=== PATIENT | female | born 1955 | race Caucasian/White ===

== ENCOUNTER → 2016-10-14 | Outpatient (REF) | payer MEDICARE, OTHER ==
[~2016-10-14] MED LIST: /WARF25TA OR; /WARF5TA OR; ACET65TA OR; ALLE180T33 PO; AMBI10TA PO; AMBIEN PO; AMOX500C PO; ASPI81TA83 OR; BIOT50004 PO; CELE-19 PO; FLOVENT INH; IRON28TA PO; KEFL500C OR; LISIPOW PO; MAXALT PO; MULTLIQ7 PO; NEUR300C PO; PERC5TAB8 OR; ROPI25TA PO; SPIR25TA2 PO; TRAMADOL PO; VICO5TAB OR; VITAMIN D PO; ZYRTEC PO
[2016-10-14 14:37] LABS: ALBUMIN 3.4 GM/DL (3.2-5.2); ALBUMIN/GLOBULIN RATIO 1.13 (1.00-1.93); BILIRUBIN,TOTAL 0.5 MG/DL (0.2-1.0); CALCIUM LEVEL 8.5 MG/DL (8.8-10.2); GLOMERULAR FILTRATION RATE 59.6 (>45); POTASSIUM SERUM 4.5 MEQ/L (3.5-5.1); TOTAL PROTEIN 6.4 GM/DL (6.4-8.2)
== END ==
LOC: M LABDRAW1 11:37
PROVIDERS: ATTEND Emergency Medicine
DX: E55.9 Vitamin D deficiency, unspecified (principal); I10 Essential (primary) hypertension

== ENCOUNTER → 2016-12-30 | Outpatient (CLI) | payer MEDICARE, BC, OTHER ==
--- NOTE | 2016-12-30 14:38 | REPMRS ---
Patient History The patient states she has not had a clinical breast exam in over a year. Family history of breast cancer in mother at age 50 or over and breast cancer in maternal aunt at age 50 or over. Benign stereotatic breast biopsy of the right breast, 2005. Digital Woman Screen Mammo: December 30, 2016 - Exam #: [id number] Bilateral CC and MLO view(s) were taken. Technologist: Freda Michelle Technologist Prior study comparison: December 17, 2015, digital woman screen mammo performed at [facility]. November 15, 2014, digital woman screen mammo performed at [facility]. FINDINGS: There are scattered fibroglandular densities. There has been no change in the appearance of the mammogram from the prior studies. There is a mild amount of residual fibroglandular tissue which is fairly symmetric. There is no interval development of dominant mass, architectural distortion, or clustered microcalcification suggestive of malignancy. ASSESSMENT: BI-RADS/ACR category 1 mammogram. Negative. Recommendation Routine screening mammogram in 1 year (for women over age 40). This mammogram was interpreted with the aid of an FDA-approved computer-aided dectection system. Electronically Signed By: Kevyn uCnningham MD 12/30/16 [id number]
== END ==
LOC: M WHC 13:00
PROVIDERS: ATTEND Emergency Medicine
DX: Z12.31 Encounter for screening mammogram for malignant neoplasm of breast (principal)

== ENCOUNTER → 2017-03-02 | Outpatient (CLI) | payer MEDICARE, BC, OTHER ==
[~2017-03-02] VITALS: Ht 160 cm; Wt 99.8 kg
[~2017-03-02] MED LIST changes: -CELE-19 PO; +CELE1CAP4 PO; +CELE1CAP9 PO; +FISH1000 PO; +LEXA1TAB PO; +LIDOCAINE 2% INJ 100 MG/5 ML SDV (FOR ANES.) As Ordered ONE; +NS 1,000 ML IV ONE; +PROPOFOL 200 MG/20 ML VIAL As Ordered ONE; +RIZA10TA2 PO; +TIZA4CAP3 PO; +TRAZ50TA11 PO; +VITA200016 PO; +ZYRT10TA2 PO; +[UNRECOGNIZED DRUG - OTHER] PO; +vicodin PO
--- NOTE | 2017-03-02 09:03 | ROOR ---
Patient Name: Nikki Wyman Procedure Date: 03/02/2017 8:45 AM Date of : 1955 Age: 61 Room: [facility] Gender: Female Note Status: Finalized Procedure: Total Colonoscopy to Cecum Indications: Screening for colorectal malignant neoplasm Providers: Elliott Deshpande MD Referring MD: AMALIA MARROQUIN MD Requesting Provider: Medicines: Monitored Anesthesia Care Complications: No immediate complications. Procedure: Pre-Anesthesia Assessment: - The heart rate, respiratory rate, oxygen saturations, blood pressure, adequacy of pulmonary ventilation, and response to care were monitored throughout the procedure. The Colonoscope was introduced through the anus and advanced to the cecum, identified by appendiceal orifice and ileocecal valve. The colonoscopy was performed without difficulty. The patient tolerated the procedure well. The quality of the bowel preparation was good. Findings: The perianal and digital rectal examinations were normal. Non-bleeding internal hemorrhoids were found during retroflexion. The hemorrhoids were small and Grade I (internal hemorrhoids that do not prolapse). Scattered small-mouthed diverticula were found in the recto-sigmoid colon, sigmoid colon and descending colon. The exam was otherwise without abnormality on direct and retroflexion views. Impression: - Non-bleeding internal hemorrhoids. - Diverticulosis in the recto-sigmoid colon, in the sigmoid colon and in the descending colon. - The examination was otherwise normal on direct and retroflexion views. - No specimens collected. - The exam was otherwise normal to the cecum. Recommendation: - Patient has a contact number available for emergencies. The signs and symptoms of potential delayed complications were discussed with the patient. Return to normal activities tomorrow. Written discharge instructions were provided to the patient. - High fiber diet. - Discharge patient to home. - Continue present medications. - Repeat colonoscopy in 10 years for screening purposes. - Return to referring physician. - The findings and recommendations were discussed with the patient's family. Elliott Deshpande MD Elliott Deshpande MD 03/02/2017 9:03:04 AM This report has been signed electronically. Number of Addenda: 0 Note Initiated On: 03/02/2017 8:45 AM Estimated Blood Loss: Estimated blood loss: none.
[2017-03-02 09:30] VITALS: BP 161/92
== END | disposition home or self-care (01) ==
LOC: M OPP 08:03
PROVIDERS: ATTEND Internal Medicine Gastroenterology
DX: Z12.11 Encounter for screening for malignant neoplasm of colon (principal); K64.0 First degree hemorrhoids; K57.30 Diverticulosis of large intestine without perforation or abscess without bleeding; E04.1 Nontoxic single thyroid nodule; R60.0 Localized edema; M19.90 Unspecified osteoarthritis, unspecified site; G43.909 Migraine, unspecified, not intractable, without status migrainosus; J45.909 Unspecified asthma, uncomplicated; Z98.84 Bariatric surgery status; Z98.1 Arthrodesis status; Z91.040 Latex allergy status; Z79.899 Other long term (current) drug therapy; Z80.3 Family history of malignant neoplasm of breast

== ENCOUNTER → 2017-04-30 | Outpatient (REF) | payer MEDICARE, OTHER ==
[~2017-04-30] MED LIST changes: -LIDOCAINE 2% INJ 100 MG/5 ML SDV (FOR ANES.) As Ordered ONE; -NS 1,000 ML IV ONE; -PROPOFOL 200 MG/20 ML VIAL As Ordered ONE
[2017-04-30 11:25] LABS: ALBUMIN 3.9 GM/DL (3.2-5.2); ALBUMIN/GLOBULIN RATIO 1.44 (1.00-1.93); ALKALINE PHOSPHATASE 92 U/L (45-117); ALT/SGPT 23 U/L (12-78); ANION GAP 6 MEQ/L (8-16); AST/SGOT 19 U/L (15-37); BILIRUBIN,TOTAL 0.5 MG/DL (0.2-1.0); BLOOD UREA NITROGEN 15 MG/DL (7-18); CALCIUM LEVEL 8.5 MG/DL (8.8-10.2); CARBON DIOXIDE LEVEL 31 MEQ/L (21-32); CHLORIDE LEVEL 106 MEQ/L (98-107); CHOLESTEROL LEVEL 199 MG/DL (<200); CREATININE FOR GFR 0.87 MG/DL (0.55-1.02); GLOMERULAR FILTRATION RATE > 60.0 (>45); GLUCOSE, FASTING 92 MG/DL (80-110); POTASSIUM SERUM 4.6 MEQ/L (3.5-5.1); SODIUM LEVEL 143 MEQ/L (136-145); TOTAL PROTEIN 6.6 GM/DL (6.4-8.2); TRIGLYCERIDES LEVEL 66 MG/DL (<150)
== END ==
LOC: M LABDRAW1 10:28
PROVIDERS: ATTEND Emergency Medicine
DX: E55.9 Vitamin D deficiency, unspecified (principal); I10 Essential (primary) hypertension

== ENCOUNTER 2017-05-12 15:45 | Emergency (ER) | payer MEDICARE, BC, OTHER ==
[~2017-05-12] VITALS: Ht 160 cm; Wt 95.0 kg
--- NOTE | 2017-05-12 16:38 | REP ---
CT Head without contrast HISTORY: Trauma COMPARISON: 04/26/2012 There is no intraparenchymal hemorrhage, acute infarct, mass or midline shift. The ventricular system is normal in appearance. There is no extra cerebral collection. There is no fracture. The visualized sinuses are clear. IMPRESSION: There is no intracranial lesion. Signed by Jamel Dubon MD 05/12/2017 04:30 P
--- NOTE | 2017-05-12 17:08 | REP ---
CT CERVICAL SPINE WITHOUT CONTRAST: HISTORY: Trauma. COMPARISON: 04/26/2012 The patient is status post C5-6 anterior spinal fusion. A fixation plate and bone graft material are present. There is no acute fracture or subluxation. Disc bulges are present at the C3-4 and C4-5 levels. Posterior osteophytes are present at the C5-6 level. A disc bulge with associated osteophyte formation is present at the C6-7 level. There is minimal narrowing of the spinal canal. Uncinate process and/or facet hypertrophy are present at te C5-6 through C7-T1 levels. These findings produce minimal to moderate narrowing of the neural foramina. The C4-5 and C6-7 intervertebral discs are decreased in height consistent with disc degeneration. Hypodensities measuring 0.9 to 1.5 cm in width are present in the thyroid gland. These most likely represent cysts. A 4 mm calcification is present in the left thyroid lobe. IMPRESSION: 1. The patient is status post C5-6 anterior spinal fusion. There is anatomic alignment of the cervical spine. 2. There is cervical spondylosis at the C3-4 through C7-T1 levels. 3. There are several hypodensities ranging in size from 0.9 to 1.5 cm in the thyroid gland. These most likely represent cysts. Ultrasound may be helpful for further evaluation. Signed by Jamel Dubon MD 05/12/2017 05:08 P
--- NOTE | 2017-05-12 17:45 | REP ---
LEFT HAND, FOUR VIEWS: HISTORY: Trauma. There is no acute fracture or dislocation. There is narrowing of the first carpometacarpal joint space with associated osteophyte formation. There is narrowing of the first through fifth metacarpophalangeal, intermediate and distal interphalangeal joint spaces. IMPRESSION: Degenerative change as described above. Signed by Jamel Dubon MD 05/12/2017 05:47 P
--- NOTE | 2017-05-12 17:45 | REP ---
LEFT ELBOW, FOUR VIEWS: HISTORY: Trauma. There is no acute fracture or dislocation. The joint space is normal in appearance. IMPRESSION: There is no acute fracture or dislocation. Signed by Jamel Dubon MD 05/12/2017 05:47 P
[2017-05-12] MEDS ORDERED: KETOROLAC 30 MG/ML VIAL (J1885) IV ONE (18:15)
[2017-05-12 18:21] VITALS: BP 168/81
--- NOTE | 2017-05-13 06:42 | ED PDOC ---
Post-Departure Follow-Up dr santos faxed formal report of ct c spine for fu Wilfredo Batista MD May 13, 2017 06:42
== END 2017-05-12 18:34 | disposition home or self-care (01) ==
LOC: M ED 15:45 → EDSEX 15:45 → EDBD 15:45 → M ED 18:34
DX: S00.03XA Contusion of scalp, initial encounter (principal); S60.012A Contusion of left thumb without damage to nail, initial encounter; S50.02XA Contusion of left elbow, initial encounter; S00.81XA Abrasion of other part of head, initial encounter; V86.99XA Unspecified occupant of other special all-terrain or other off-road motor vehicle injured in nontraffic accident, initial encounter; Y92.099 Unspecified place in other non-institutional residence as the place of occurrence of the external cause; Y93.9 Activity, unspecified; Y99.9 Unspecified external cause status; G43.909 Migraine, unspecified, not intractable, without status migrainosus; Z98.84 Bariatric surgery status; Z98.1 Arthrodesis status; M47.812 Spondylosis without myelopathy or radiculopathy, cervical region; E07.9 Disorder of thyroid, unspecified; Z79.899 Other long term (current) drug therapy; Z91.040 Latex allergy status
CPT/HCPCS: 70450; 72125; 73080; 73130; 96374; 99284; J1885

== ENCOUNTER → 2017-09-25 | Outpatient (REF) | payer MEDICARE, OTHER ==
[2017-09-25 20:43] LABS: BASO % 0.5 % (0.0-1.0); EOS # 0.3 10^3/uL (0.0-0.50); EOS % 3.6 % (0.0-3.0); HEMATOCRIT 40.4 % (36.0-47.0); HEMOGLOBIN 12.6 g/dl (12.0-16.0); IMMATURE GRANULOCYTE % 0.3 % (0-3.0); LYMPH # 2.1 10^3/uL (1.5-4.5); LYMPH % 27.1 % (24.0-44.0); MEAN CORPUSCULAR HEMOGLOBIN 28.8 pg (27.0-33.0); MEAN CORPUSCULAR HGB CONC 31.2 g/dl (32.0-36.5); MEAN CORPUSCULAR VOLUME 92.2 fl (80.0-96.0); MONO # 0.6 10^3/uL (0.0-0.8); MONO % 7.2 % (0.0-5.0); NEUTROPHILS # 4.8 10^3/uL (1.8-7.7); NEUTROPHILS % 61.3 % (36.0-66.0); PLATELET COUNT, AUTOMATED 206 10^3/uL (150-450); RED BLOOD COUNT 4.38 10^6/uL (4.00-5.40); RED CELL DISTRIBUTION WIDTH 13.2 % (11.5-14.5); WHITE BLOOD COUNT 7.8 10^3/uL (4.0-10.0)
[2017-09-25 20:59] LABS: ALBUMIN 4.1 GM/DL (3.2-5.2); ALBUMIN/GLOBULIN RATIO 1.28 (1.00-1.93); ALKALINE PHOSPHATASE 118 U/L (45-117); ALT/SGPT 40 U/L (12-78); ANION GAP 5 MEQ/L (8-16); AST/SGOT 42 U/L (7-37); BILIRUBIN,TOTAL 0.5 MG/DL (0.2-1.0); BLOOD UREA NITROGEN 16 MG/DL (7-18); CALCIUM LEVEL 8.6 MG/DL (8.8-10.2); CARBON DIOXIDE LEVEL 31 MEQ/L (21-32); CHLORIDE LEVEL 107 MEQ/L (98-107); GLOMERULAR FILTRATION RATE > 60.0 (>45); GLUCOSE, FASTING 87 MG/DL (70-100); POTASSIUM SERUM 4.8 MEQ/L (3.5-5.1); SODIUM LEVEL 143 MEQ/L (136-145); TOTAL PROTEIN 7.3 GM/DL (6.4-8.2); URIC ACID 4.3 MG/DL (2.6-6.0)
== END ==
LOC: M SFHCLERA 18:31
DX: M79.674 Pain in right toe(s) (principal)
CPT/HCPCS: 84550

== ENCOUNTER → 2017-12-31 | Outpatient (CLI) | payer MEDICARE, BC | LOC: M WHC 09:32 | DX: Z12.31 Encounter for screening mammogram for malignant neoplasm of breast (principal) | CPT/HCPCS: 77067 ==

== ENCOUNTER → 2018-03-29 | Outpatient (REF) | payer MEDICARE, OTHER ==
[2018-03-29 13:04] LABS: ALBUMIN 3.6 GM/DL (3.2-5.2); ALKALINE PHOSPHATASE 87 U/L (45-117); ALT/SGPT 17 U/L (12-78); ANION GAP 8 MEQ/L (8-16); AST/SGOT 15 U/L (7-37); BILIRUBIN,TOTAL 0.5 MG/DL (0.2-1.0); BLOOD UREA NITROGEN 19 MG/DL (7-18); CALCIUM LEVEL 8.3 MG/DL (8.8-10.2); CARBON DIOXIDE LEVEL 27 MEQ/L (21-32); CHLORIDE LEVEL 109 MEQ/L (98-107); CHOLESTEROL LEVEL 182 MG/DL (<200); GLOMERULAR FILTRATION RATE > 60.0 (>45); GLUCOSE, FASTING 97 MG/DL (70-100); HDL CHOLESTEROL 56 MG/DL (>40); LDL CHOLESTEROL 106.6 MG/DL (<100); NON-HDL-C 126 MG/DL; POTASSIUM SERUM 4.2 MEQ/L (3.5-5.1); SODIUM LEVEL 144 MEQ/L (136-145); TOTAL PROTEIN 6.6 GM/DL (6.4-8.2); TRIGLYCERIDES LEVEL 97 MG/DL (<150)
[2018-03-29 13:32] LABS: TOTAL 25(OH) VITAMIN D 42.1 NG/ML (30.0-100.0)
== END ==
LOC: M LABDRAW1 11:52
DX: E55.9 Vitamin D deficiency, unspecified (principal); I10 Essential (primary) hypertension
CPT/HCPCS: 80053

== ENCOUNTER 2018-04-11 14:15 | Emergency (ER) | payer MEDICARE, BC, OTHER | END 2018-04-11 16:52 | disposition home or self-care (01) | LOC: M ED 14:15 | DX: M79.651 Pain in right thigh (principal); W01.0XXA Fall on same level from slipping, tripping and stumbling without subsequent striking against object, initial encounter; Y92.098 Other place in other non-institutional residence as the place of occurrence of the external cause; Z96.641 Presence of right artificial hip joint; Z98.84 Bariatric surgery status; Z91.040 Latex allergy status; Z79.899 Other long term (current) drug therapy | CPT/HCPCS: 72190 ==

== ENCOUNTER → 2018-04-16 | Outpatient (CLI) | payer MEDICARE, BC, OTHER | LOC: M RAD 08:12 | DX: S70.01XA Contusion of right hip, initial encounter (principal) | CPT/HCPCS: 78315 ==

== ENCOUNTER 2018-09-14 15:29 | Emergency (ER) | payer BC, MEDICARE, OTHER ==
[~2018-09-14 15:29] MED LIST changes: +SPIR-10 PO; -SPIR25TA2 PO; +TIZA4CAP PO; -TIZA4CAP3 PO; +TRAZ-160 PO; -TRAZ50TA11 PO; +ZYRT10CA5 PO; -ZYRT10TA2 PO
[2018-09-14] MEDS ORDERED: NORCOTAB PO (16:57)
[2018-09-14] MEDS ORDERED: ROLLMIS2 XX ×2 (16:57→17:00)
[2018-09-14 17:10] VITALS: BP 175/89
--- NOTE | 2018-09-14 19:14 | REP ---
Right ankle four views: There is a nondisplaced spiral fracture of the distal fibula. The mortise is symmetric. There is no dislocation. Mineralization is normal. There is a calcaneal plantar spur. Electronically Signed by Keyvn Camargo MD 09/14/2018 07:04 P
== END 2018-09-14 17:15 | disposition home or self-care (01) ==
LOC: EDBD 15:29 → M ED 15:29
DX: S82.441A Displaced spiral fracture of shaft of right fibula, initial encounter for closed fracture (principal); W00.0XXA Fall on same level due to ice and snow, initial encounter; Y92.019 Unspecified place in single-family (private) house as the place of occurrence of the external cause

== ENCOUNTER → 2019-01-11 | Outpatient (CLI) | payer MEDICARE, BC ==
[~2019-01-11] MED LIST changes: -/WARF25TA OR; -/WARF5TA OR; +COUM1TAB17 OR; +COUM1TAB18 OR; +HYDR-3715 PO; +ROLLMIS2 XX; -TRAZ-160 PO; +TRAZ-252 PO
--- NOTE | 2019-01-11 08:57 | REPMRS ---
Patient History The patient states she has not had a clinical breast exam in over a year. Family history of breast cancer at age 50 or over in mother, breast cancer at age 50 or over in maternal aunt. Benign stereotatic breast biopsy of the right breast, 2006. Digital Woman Screen Mammo: January 11, 2019 - Exam #: [id number] Bilateral CC and MLO view(s) were taken. Technologist: Karen Bryant, Technologist Prior study comparison: December 31, 2017, digital woman screen mammo performed at [facility]. December 30, 2016, digital woman screen mammo performed at [facility]. December 17, 2015, digital woman screen mammo performed at [facility]. FINDINGS: There are scattered fibroglandular densities. There has been no change in the appearance of the mammogram from the prior studies. There is a mild amount of scattered fibroglandular density which is fairly symmetric. There is no interval development of dominant mass, architectural distortion, or clustered microcalcification suggestive of malignancy. 3-D tomosynthesis shows no additional findings. Assessment: BI-RADS/ACR category 1 mammogram. Negative Mammogram. Recommendation Routine screening mammogram of both breasts in 1 year (for women over age 40). This patient's Lifetime Breast Cancer RIsk is estimated at 12.1 %. This mammogram was interpreted with the aid of an FDA-approved computer-aided dectection system. Electronically Signed By: Myron Cano MD 01/11/19 [id number]
== END ==
LOC: M WHC 06:39
PROVIDERS: ATTEND Family Medicine
DX: Z12.31 Encounter for screening mammogram for malignant neoplasm of breast (principal); Z80.3 Family history of malignant neoplasm of breast

== ENCOUNTER 2019-09-24 14:52 | Observation (INO) | payer MEDICARE, BC, OTHER ==
[~2019-09-24] VITALS: Ht 165.1 cm; Wt 101.0 kg
[2019-09-24 15:31] LABS: BASO % 0.3 % (0.0-1.0); EOS # 0.2 10^3/uL (0.0-0.5); EOS % 2.8 % (0.0-3.0); HEMATOCRIT 42.1 % (36.0-47.0); HEMOGLOBIN 13.2 g/dl (12.0-15.5); LYMPH # 1.4 10^3/uL (1.5-5.0); LYMPH % 21.4 % (24.0-44.0); MEAN CORPUSCULAR HEMOGLOBIN 28.8 pg (27.0-33.0); MEAN CORPUSCULAR HGB CONC 31.4 g/dl (32.0-36.5); MEAN CORPUSCULAR VOLUME 91.9 fl (80.0-96.0); MONO # 0.4 10^3/uL (0.0-0.8); MONO % 5.8 % (0.0-5.0); NEUTROPHILS # 4.4 10^3/uL (1.5-8.5); NEUTROPHILS % 69.5 % (36.0-66.0); PLATELET COUNT, AUTOMATED 196 10^3/uL (150-450); RED BLOOD COUNT 4.58 10^6/uL (4.00-5.40); WHITE BLOOD COUNT 6.4 10^3/uL (4.0-10.0)
[2019-09-24 15:41] LABS: INR 1.05; PROTHROMBIN TIME 13.4 SECONDS (11.8-14.0)
--- NOTE | 2019-09-24 15:41 | REP ---
The CT of the brain without IV contrast: Comparison is 05/12/2017. There is no acute hemorrhage. There is no edema, mass effect or midline shift. The ventricles and sulci are mildly dilated compatible with diffuse volume loss. The cortical stripe is unremarkable. The visualized paranasal sinuses and mastoid air cells are clear. Impression: There is no acute hemorrhage. There is no mass effect or shift. There is mild diffuse volume loss. Electronically Signed by Kevyn Camargo MD 09/24/2019 03:33 P
[2019-09-24 15:42] LABS: PARTIAL THROMBOPLASTIN TIME 26.9 SECONDS (25.0-38.4)
[2019-09-24 15:54] LABS: CK-MB VALUE MASS < 1.0 NG/ML (<3.6); CPK CREATINE PHOSPHOKINASE 43 U/L (26-192); MB/CK RELATIVE INDEX 2.33 (< OR =4); TROPONIN I < 0.02 NG/ML (< 0.10)
[2019-09-24 16:13] LABS: ALBUMIN 3.8 GM/DL (3.2-5.2); ALT/SGPT 34 U/L (12-78); BILIRUBIN,DIRECT < 0.1 MG/DL (0.0-0.2); BILIRUBIN,TOTAL 0.3 MG/DL (0.2-1.0); BLOOD UREA NITROGEN 15 MG/DL (7-18); CALCIUM LEVEL 8.2 MG/DL (8.8-10.2); CARBON DIOXIDE LEVEL 30 MEQ/L (21-32); CHLORIDE LEVEL 108 MEQ/L (98-107); CREATININE FOR GFR 0.94 MG/DL (0.55-1.30); GLOMERULAR FILTRATION RATE > 60.0 (>45); GLUCOSE, FASTING 190 MG/DL (70-100); POTASSIUM SERUM 3.7 MEQ/L (3.5-5.1); SODIUM LEVEL 140 MEQ/L (136-145); TOTAL PROTEIN 6.7 GM/DL (6.4-8.2)
--- NOTE | 2019-09-24 16:32 | REP ---
Portable chest, 04:04 p.m., single AP view with the patient upright: Comparison is 09/20/2015. There is minor atelectasis in the left costophrenic angle. Lung humphrey otherwise clear. The cardiac size is normal. The francisco javier, mediastinum, skeletal structures are unremarkable except for a cervical spine stabilization plate, unchanged. Impression: Minor atelectasis in the left costophrenic angle. Otherwise, negative portable chest. Electronically Signed by Kevyn Camargo MD 09/24/2019 04:24 P
[2019-09-24] MEDS ORDERED: BIOT5TAB3 PO (16:38)
[2019-09-24] MEDS ORDERED: ESCI20TA PO (16:38)
[2019-09-24] MEDS ORDERED: NORC1TAB7 PO (16:38)
[2019-09-24] MEDS ORDERED: POLYOPD OU (16:38)
[2019-09-24] MEDS ORDERED: ALL10TAB29 PO (16:38)
[2019-09-24] MEDS ORDERED: OYST1TAB PO (16:38)
[2019-09-24] MEDS ORDERED: FISH1000 PO (16:38)
[2019-09-24] MEDS ORDERED: D3 S1CAP3 PO (16:38)
[2019-09-24] MEDS ORDERED: GABA-843 PO ×2 (16:39)
--- NOTE | 2019-09-24 17:00 | HPEPDOC ---
General Date of Admission 09/24/19 Date of Service: Sep 24, 2019 Chief Complaint The patient is a 64-year-old female admitted with a reason for visit of S/S Of Stroke. History of Present Illness 64 year old female presents with L arm shaking and tongue numbness. Symptoms started at 2:30PM with numbness to her tongue, followed by L arm shaking and blurry vision. States symptoms lasted only about 2 minutes and then resolved. Has had a persistent frontal headache since then. Presents with BP194/117, labwork/CT head negative. Symptoms have not recurred, currently only with mild headache. Neurology Dr. Hess consulted in ED, admission for MRI, ECHO/carotids, EEG. Home Medications Scheduled Biotin (Biotin) 5 Mg Tablet, 5 MG PO DAILY, (Reported) Calcium Carbonate (Calcium) 500 Mg Tablet, 500 MG PO DAILY, (Reported) Celecoxib (Celecoxib) 200 Mg Cap, 200 MG PO BID, (Reported) Cetirizine HCl (Cetirizine HCl) 10 Mg Tablet, 10 MG PO DAILY, (Reported) Cholecalciferol (Vitamin D3) (Vitamin D3) 50 Mcg Capsule, 50 MCG PO DAILY, (Reported) Escitalopram Oxalate (Escitalopram Oxalate) 20 Mg Tablet, 20 MG PO DAILY, (Reported) Gabapentin (Gabapentin) 300 Mg Capsule, 300 MG PO QAM, (Reported) Gabapentin (Gabapentin) 300 Mg Capsule, 600 MG PO QHS, (Reported) [place]-3 Fatty Acids/Fish Oil (Fish Oil 1,000 mg Capsule) 1 Each Capsule, 1,000 MG PO DAILY, (Reported) Tizanidine HCl (Tizanidine HCl) 4 Mg Cap, 8 MG PO QHS, (Reported) Topiramate (Topamax) 50 Mg Tablet, 50 MG PO QHS Trazodone HCl (Trazodone HCl) 50 Mg Tab, 50 MG PO QHS, (Reported) Scheduled PRN Hydrocodone/Acetaminophen ([place] 5-325 Tablet) 1 Each Tablet, 1 TAB PO Q6H PRN for MIGRAINE, (Reported) Polyvinyl Alcohol (Artificial Tears) 15 Ml Drops, 1 DROP OU QID PRN for DRY EYES, (Reported) Rizatriptan Benzoate (Rizatriptan) 10 Mg Tab, 10 MG PO PRN PRN for MIGRAINE, (Reported) Allergies Coded Allergies: No Known Allergies (Verified , 02/23/17) Past Medical History Medical History migraine headaches, low back pain Surgical History as above A-FIB/CHADSVASC A-FIB History Current/History of A-Fib/PAF?: No Review of Systems Constitutional: Denies: Chills, Fever, Night Sweats Eyes: Denies: Pain, Vision change ENT: Denies: Head Aches, Ear Pain, Dysphagia Skin: Denies: Rash, Lesions, Breakdown Pulmonary: Denies: Dyspnea, Cough Cardiovascular: Denies: Chest Pain, Palpitations, Orthopnea, Paroxysmal Noc. Dyspnea, Lt Headedness Gastrointestinal: Denies: Nausea, Vomiting, Abdominal Pain, Diarrhea Genitourinary: Denies: Dysuria, Frequency, Incontinence, Retention Hematologic: Denies: Bruising, Bleeding Excessively Musculoskeletal: Denies: Neck Pain, Back Pain, Joint Pain, Muscle Pain, Spasms Neurological: Reports: Other Symptoms (headache); Denies: Weakness, Numbness, Change in speech, Confusion Psych: Reports: Mood Normal; Denies: Depression, Memory Issues Physical Examination General Exam: Positive: Alert, No Acute Distress Eye Exam: Positive: PERRLA, Conjunctiva & lids normal, EOMI; Negative: Sclera icteric ENT Exam: Positive: Atraumatic, Mucous membr. moist/pink, Pharynx Normal Neck Exam: Positive: Supple; Negative: JVD, thyromegaly Chest Exam: Positive: Clear to auscultation, Normal air movement Heart Exam: Positive: Rate Normal, Regular Rhythm, Normal S1, Normal S2; Negative: Murmurs, Rubs Telemetry: Positive: No significant arrhythmia Abdomen Exam: Positive: Normal bowel sounds, Soft; Negative: Tenderness, Hepatospenomegaly Extremity Exam: Positive: Normal pulses; Negative: Clubbing, Cyanosis, Edema Skin Exam: Positive: Nl turgor and temperature; Negative: Breakdown, Lesion Neuro Exam: Positive: Normal Gait, Normal Speech, Cranial Nerves 3-12 NL, Reflexes 2+ Psych Exam: Positive: Mental status NL, Mood NL, Oriented x 3 Vital Signs Vital Signs Date Time Temp Pulse Resp B/P (MAP) Pulse Ox O2 Delivery O2 Flow Rate FiO2 09/24/19 16:19 74 18 173/81 (111) 98 Room Air 09/24/19 14:54 98.2 Laboratory Data Labs 24H Laboratory Tests 2 09/24/19 15:20: Immature Granulocyte % (Auto) 0.2, Neutrophils (%) (Auto) 69.5H, Lymphocytes (%) (Auto) 21.4L, Monocytes (%) (Auto) 5.8H, Eosinophils (%) (Auto) 2.8, Basophils (%) (Auto) 0.3, Neutrophils # (Auto) 4.4, Lymphocytes # (Auto) 1.4L, Monocytes # (Auto) 0.4, Eosinophils # (Auto) 0.2, Basophils # (Auto) 0.0, Nucleated Red Blood Cells % (auto) 0.0, Prothrombin Time 13.4, Prothromb Time International Ratio 1.05, Activated Partial Thromboplast Time 26.9, Anion Gap 2L, Glomerular Filtration Rate > 60.0, Calcium Level 8.2L, Total Bilirubin 0.3, Direct Bilirubin < 0.1, Aspartate Amino Transf (AST/SGOT) 24, Alanine Aminotransferase (ALT/SGPT) 34, Alkaline Phosphatase 107, Total Creatine Kinase 43, Creatine Kinase MB < 1.0, Creatine Kinase MB Relative Index 2.33, Troponin I < 0.02, Total Protein 6.7, Albumin 3.8, Albumin/Globulin Ratio 1.31 09/24/19 15:21: Bedside Prothrombin Time INR 1.1, Prothrombin Time (MISC) 13.0 09/24/19 15:22: POC Glucose (Misc Panel) 194H, POC Sodium (Misc Panel) 142, POC Potassium (Misc Panel) 3.7, POC Chloride (Misc Panel) 104, POC Total CO2 (Misc Panel) 27.0, POC Blood Urea Nitrogen (Misc Panel 15, POC Ionized Calcium (Misc Panel) 4.7, POC Creatinine (Misc Panel) 0.9, POC Hematocrit (Misc Panel) 41.0 CBC/BMP Laboratory Tests 09/24/19 15:20 Assessment/Plan 1. L arm shaking/numbness to tongue/blurry vision - TIA versus complex migraine versus seizure. - neurology Dr. Hess consulted in ED. - admit for MRI brain, ECHO/carotids, EEG. - ASA, statin. 2. hx migraines - continue triptan. 3. lower back pain - continue muscle relaxant. 4. HTN (uncontrolled) - will treat with IV lopressor, start PO meds. - monitor. Plan / VTE VTE Prophylaxis Ordered?: Yes GERMAIN HENRIQUEZ MD Sep 24, 2019 17:00
[2019-09-24] MEDS ORDERED: METOPROLOL 5 MG/5 ML VIAL IV STA (17:05)
[2019-09-24] MEDS ORDERED: METOPROLOL SUCC (TopROL XL) 50MG **XL** TAB PO ONE (17:15)
[2019-09-24] MEDS ORDERED: NORCO, ANEXSIA 5/325MG TABLET (HYDROcodone/ACETAMINOPHEN) PO PRN (17:15)
[2019-09-24] MEDS ORDERED: POLYVINYL ALCOHOL OPHTH SOLN 15 ML(LIQUITEARS) OU PRN (17:15)
[2019-09-24] MEDS ORDERED: RIZATRIPTAN BENZOATE 10 MG TAB PO PRN (17:15)
[2019-09-24] MEDS ORDERED: METOPROLOL TART 25 MG TABLET PO ONE (17:30)
--- NOTE | 2019-09-24 18:44 | REPVR ---
PROCEDURE INFORMATION: Exam: MR Head Without Contrast Exam date and time: 09/24/2019 5:02 PM Age: 64 years old Clinical indication: Weakness, facial; Additional info: TIA TECHNIQUE: Imaging protocol: MR of the head without contrast. COMPARISON: CT Head without contrast 09/24/2019 3:16 PM FINDINGS: Brain: Normal. No acute infarct. No hemorrhage. No significant white matter disease. No edema. Ventricles: Normal. No ventriculomegaly. Bones/joints: Unremarkable. Soft tissues: Unremarkable. Sinuses: Inflammatory changes left maxillary sinus. Mastoid air cells: Normal as visualized. No mastoid effusion. Orbits: Unremarkable. IMPRESSION: No acute intracranial findings. Electronically signed by: Benjie Pascual On 09/24/2019 18:44:47 PM
[2019-09-24 18:52] LABS: CHOLESTEROL LEVEL 177 MG/DL (<200); CHOLESTEROL RISK RATIO 4.116 (<5); HDL CHOLESTEROL 43 MG/DL (>40); LDL CHOLESTEROL 104 MG/DL (<100); NON-HDL-C 134 MG/DL; TRIGLYCERIDES LEVEL 148 MG/DL (<150)
--- NOTE | 2019-09-24 18:52 | REPVR ---
PROCEDURE INFORMATION: Exam: US Duplex Bilateral Extracranial Arteries Exam date and time: 09/24/2019 6:43 PM Age: 64 years old Clinical indication: Visual disturbance; Additional info: TIA TECHNIQUE: Imaging protocol: Real-time Duplex ultrasound scan of the bilateral carotid and vertebral arteries combining wiley scale, color Doppler and spectral waveform analysis. Bilateral exam. COMPARISON: CT Head without contrast 09/24/2019 3:16 PM FINDINGS: Right common carotid artery: Unremarkable. No occlusion or stenosis. Waveforms are normal. Right internal carotid artery: Mild atherosclerotic changes. No occlusion or significant stenosis. Waveforms are normal. Right ICA/CCA ratio: Within normal limits. Peak systolic ratio 1.1. Right external carotid artery: No stenosis in the origin. Right vertebral artery: Unremarkable. Antegrade flow Left common carotid artery: Unremarkable. No occlusion or stenosis. Waveforms are normal. Left internal carotid artery: Mild atherosclerotic changes. No occlusion or significant stenosis. Waveforms are normal. Left ICA/CCA ratio: Within normal limits. Peak systolic ratio 0.76. Left external carotid artery: No stenosis in the origin. Left vertebral artery: Unremarkable. Antegrade flow. IMPRESSION: 1. Mild atherosclerotic changes in both proximal internal carotid arteries resulting in a less than 50 stenosis bilaterally consistent with mild stenosis using SRU criteria. 2. Antegrade flow both vertebral arteries. REFERENCES: Carotid Stenosis Reference using SRU criteria: Mild: less than 50% stenosis. ICA PSV is less than 125 cm/second and plaque or intimal thickening is visible. Moderate: 50-69% stenosis. ICA PSV is 125 to 230 cm/second and plaque is visible. Severe: 70-94% stenosis. ICA PSV is more than 230 cm/second and visible plaque and lumen narrowing are seen. Near occlusion: 95-99% stenosis. ICA PSV is variable and significant plaque and luminal narrowing are seen. Occluded: 100% stenosis. No flow identified. Electronically signed by: Benjie Pascual On 09/24/2019 18:51:42 PM
[2019-09-25 00:12] VITALS: BP 160/90
[2019-09-25] MEDS: tiZANidine 4 MG TAB PO SCH ×2 (00:45→20:32)
[2019-09-25] MEDS: traZODone 50 MG TAB PO SCH ×2 (00:45→20:32)
[2019-09-25] MEDS: GABAPENTIN 300 MG CAP PO SCH ×3 (00:45→20:32)
[2019-09-25] MEDS ORDERED: CelecoXIB (CeleBREX) 100 MG CAP PO PRN (01:30)
[2019-09-25 04:00] VITALS: BP 132/80
[2019-09-25 05:43] LABS: ALT/SGPT 31 U/L (12-78); BLOOD UREA NITROGEN 17 MG/DL (7-18); CALCIUM LEVEL 8.2 MG/DL (8.8-10.2); CARBON DIOXIDE LEVEL 31 MEQ/L (21-32); CHLORIDE LEVEL 111 MEQ/L (98-107); CREATININE FOR GFR 0.89 MG/DL (0.55-1.30); GLOMERULAR FILTRATION RATE > 60.0 (>45); GLUCOSE, FASTING 92 MG/DL (70-100); POTASSIUM SERUM 4.6 MEQ/L (3.5-5.1); SODIUM LEVEL 144 MEQ/L (136-145)
[2019-09-25 05:44] LABS: ALBUMIN 3.1 GM/DL (3.2-5.2); BILIRUBIN,TOTAL 0.3 MG/DL (0.2-1.0); TOTAL PROTEIN 6.3 GM/DL (6.4-8.2)
[2019-09-25 08:00] VITALS: BP 134/76
--- NOTE | 2019-09-25 08:25 | IPNPDOC ---
Subjective Date Seen The patient was seen on 09/25/19. Subjective Chief Complaint/HPI Seen and examined at bedside, no specific complaints, mild headache. General: Reports: Normal Appetite; Denies: Chills, Night Sweats, Fatigue, Malaise Constitutional: Denies: Chills, Fever, Night Sweats Eyes: Denies: Pain, Vision change ENT: Denies: Head Aches, Ear Pain, Dysphagia Skin: Denies: Rash, Lesions, Breakdown Pulmonary: Denies: Dyspnea, Cough Cardiovascular: Denies: Chest Pain, Palpitations, Orthopnea, Paroxysmal Noc. Dyspnea, Lt Headedness Gastrointestinal: Denies: Nausea, Vomiting, Abdominal Pain, Diarrhea, Constipation Genitourinary: Denies: Dysuria, Frequency, Incontinence, Retention Hematologic: Denies: Bruising, Bleeding Excessively Musculoskeletal: Denies: Neck Pain, Back Pain, Joint Pain, Muscle Pain, Spasms Neurological: Denies: Weakness, Numbness, Change in speech, Confusion Psych: Reports: Mood Normal; Denies: Depression, Memory Issues Objective Physical Examination General Exam: Positive: Alert, No Acute Distress Eye Exam: Positive: PERRLA, Conjunctiva & lids normal, EOMI; Negative: Sclera icteric ENT Exam: Positive: Atraumatic, Mucous membr. moist/pink, Pharynx Normal Neck Exam: Positive: Supple; Negative: JVD, thyromegaly Chest Exam: Positive: Clear to auscultation, Normal air movement Heart Exam: Positive: Rate Normal, Regular Rhythm, Normal S1, Normal S2; Negative: Murmurs, Rubs Telemetry: Positive: No significant arrhythmia Abdomen Exam: Positive: Normal bowel sounds, Soft; Negative: Tenderness, Hepatospenomegaly Female Exam: Positive: Nl Ext Genitalia; Negative: Lesions, Discharge, Odor, Tenderness Extremity Exam: Positive: Normal pulses; Negative: Clubbing, Cyanosis, Edema Skin Exam: Positive: Nl turgor and temperature; Negative: Breakdown, Lesion Neuro Exam: Positive: Normal Gait, Normal Speech, Cranial Nerves 3-12 NL, Reflexes 2+ Psych Exam: Positive: Mental status NL, Mood NL, Oriented x 3 Assessment /Plan Assessment 1. L arm shaking/numbness to tongue/blurry vision - TIA versus complex migraine versus seizure. - neurology Dr. Hess consulted in ED. - MRI brain negative, carotids with no significant stenosis. - ECHO/EEG pending. - ASA. 2. hx migraines - continue triptan. 3. lower back pain - continue muscle relaxant. 4. HTN (uncontrolled) - improved with PO meds. - monitor. Plan/VTE VTE Prophylaxis Ordered?: Yes VS, I&O, 24H, Fishbone Vital Signs/I&O Vital Signs Date Time Temp Pulse Resp B/P (MAP) Pulse Ox O2 Delivery O2 Flow Rate FiO2 09/25/19 08:00 97.0 67 18 134/76 (95) 97 Room Air I&O- Last 24 Hours up to 6 AM 09/25/19 06:00 Intake Total 0 ml Output Total 150 ml Balance -150 ml Laboratory Data 24H LABS Laboratory Tests 2 09/24/19 15:20: Immature Granulocyte % (Auto) 0.2, Neutrophils (%) (Auto) 69.5H, Lymphocytes (%) (Auto) 21.4L, Monocytes (%) (Auto) 5.8H, Eosinophils (%) (Auto) 2.8, Basophils (%) (Auto) 0.3, Neutrophils # (Auto) 4.4, Lymphocytes # (Auto) 1.4L, Monocytes # (Auto) 0.4, Eosinophils # (Auto) 0.2, Basophils # (Auto) 0.0, Nucleated Red Blood Cells % (auto) 0.0, Prothrombin Time 13.4, Prothromb Time International Ratio 1.05, Activated Partial Thromboplast Time 26.9, Anion Gap 2L, Glomerular Filtration Rate > 60.0, Calcium Level 8.2L, Total Bilirubin 0.3, Direct Bilirubin < 0.1, Aspartate Amino Transf (AST/SGOT) 24, Alanine Aminotransferase (ALT/SGPT) 34, Alkaline Phosphatase 107, Total Creatine Kinase 43, Creatine Kinase MB < 1.0, Creatine Kinase MB Relative Index 2.33, Troponin I < 0.02, Total Protein 6.7, Albumin 3.8, Albumin/Globulin Ratio 1.31, Triglycerides Level 148, Total Cholesterol 177, LDL Cholesterol 104H, Non-HDL Cholesterol (LDL + VLDL) 134, Total HDL Cholesterol 43, Cholesterol/HDL Ratio 4.116 09/24/19 15:21: Bedside Prothrombin Time INR 1.1, Prothrombin Time (MISC) 13.0 09/24/19 15:22: POC Glucose (Misc Panel) 194H, POC Sodium (Misc Panel) 142, POC Potassium (Misc Panel) 3.7, POC Chloride (Misc Panel) 104, POC Total CO2 (Misc Panel) 27.0, POC Blood Urea Nitrogen (Misc Panel 15, POC Ionized Calcium (Misc Panel) 4.7, POC C reatinine (Misc Panel) 0.9, POC Hematocrit (Misc Panel) 41.0 09/25/19 04:46: Anion Gap 2L, Glomerular Filtration Rate > 60.0, Calcium Level 8.2L, Total Bilirubin 0.3, Aspartate Amino Transf (AST/SGOT) 22, Alanine Aminotransferase (ALT/SGPT) 31, Alkaline Phosphatase 91, Total Protein 6.3L, Albumin 3.1L, Albumin/Globulin Ratio 0.97L CBC/BMP Laboratory Tests 09/24/19 15:20 09/25/19 04:46 GERMAIN HENRIQUEZ MD Sep 25, 2019 08:25
[2019-09-25] MEDS: CETIRIZINE (ZyrTEC) 10 MG TAB PO SCH (08:49)
[2019-09-25] MEDS: OYSTER SHELL CALCIUM 500 MG TAB PO SCH (08:49)
[2019-09-25] MEDS: METOPROLOL TART 25 MG TABLET PO SCH ×2 (08:50→20:32)
[2019-09-25] MEDS: ASPIRIN 81 MG ENTERIC TAB PO SCH (08:50)
[2019-09-25] MEDS: ESCITALOPRAM OXALATE 10 MG TAB (LEXAPRO) PO SCH (08:50)
[2019-09-25] MEDS ORDERED: METOPROLOL TART 25 MG TABLET PO SCH (09:00)
[2019-09-25 09:28] LABS: HEMATOCRIT 38.4 % (36.0-47.0); MEAN CORPUSCULAR HEMOGLOBIN 28.9 pg (27.0-33.0); MEAN CORPUSCULAR HGB CONC 31.3 g/dl (32.0-36.5); MEAN CORPUSCULAR VOLUME 92.5 fl (80.0-96.0); PLATELET COUNT, AUTOMATED 208 10^3/uL (150-450); RED BLOOD COUNT 4.15 10^6/uL (4.00-5.40); WHITE BLOOD COUNT 6.2 10^3/uL (4.0-10.0)
[2019-09-25 12:00] VITALS: BP 144/88
[2019-09-25 16:00] VITALS: BP 148/70
[2019-09-25 20:00] VITALS: BP 150/90
--- NOTE | 2019-09-25 20:48 | ECGEPIP ---
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
--- NOTE | 2019-09-25 21:11 | CR ---
DATE OF CONSULTATION: 09/25/2019 REFERRING PHYSICIAN: Chencho Petersen MD REASON FOR CONSULTATION: Left arm shaking, tongue numbness, blurred vision followed by headache. HISTORY OF PRESENT ILLNESS: Nikki Wyman is a 64-year-old woman who was at her baseline state of health until 2:30 in the afternoon when she felt blurred vision. She was playing on her phone at that time. She had difficulty focusing at that moment. She felt slight twitching of her left arm, lasting for 1-2 minutes and felt that her tongue went numb for half an hour. She later developed 6/10 headache. She has headaches 5-6 days a week. She has a history of migraines for many years. She denies any seizures, dysphagia, dysarthria, diplopia or urinary incontinence. She denies any numbness, weakness of her arms and legs. She denies any neck or back pain. DIAGNOSTIC STUDIES: MRI scan of brain was unremarkable. Carotid ultrasound showed mild bilateral carotid artery atherosclerosis. CBC and metabolic profile were within normal limits. Echocardiogram is pending. PAST MEDICAL HISTORY: Migraines, low back pain. HOME MEDICATIONS; - biotin 5 mg by mouth daily - calcium carbonate 500 mg by mouth daily , Celebrex 200 mg by mouth twice a day - Zyrtec 10 mg by mouth daily - Lexapro 20 mg by mouth daily - gabapentin 300 plus 600 mg daily - tizanidine 4 mg by mouth twice a day as needed - trazodone 50 mg by mouth nightly - fish oil 1000 mg by mouth daily SOCIAL HISTORY: She denies smoking, alcohol or illicit drugs. FAMILY HISTORY: Noncontributory. REVIEW OF SYSTEMS: All systems were reviewed and were found to be noncontributory except as mentioned in history of present illness. PHYSICAL EXAMINATION: Blood pressure 134/76, pulse 67, temperature 97, respiratory rate 16. Heart: Regular rate and rhythm. Lungs: Clear to auscultation. Abdomen: Soft, nontender, nondistended. No pedal edema. No musculoskeletal abnormalities. No rash. No signs of meningeal irritation. The patient is awake, alert, oriented to place, person and time. Normal speech comprehension and repetition. Extraocular muscles are intact. No facial weakness. Tongue and uvula are midline. 5/5 strength in all four extremities. Deep tendon reflexes are 2+ throughout. Normal sensation. Gait is normal. ASSESSMENT: 1. Suspected complex migraine. 2. There is concern for TIA and partial seizures, although less likely. 3. History of chronic tension headaches and migraines. PLAN: 1. Await echocardiogram. 2. EEG can be done on outpatient basis. 3. Topamax 50 mg by mouth nightly. 4. Aspirin 81 mg by mouth daily. 5. She follow with our office in 2-4 weeks after hospital discharge.
[2019-09-26] VITALS: BP 102/55
[2019-09-26 04:00] VITALS: BP 120/60
[2019-09-26 05:32] LABS: HEMATOCRIT 39.8 % (36.0-47.0); HEMOGLOBIN 12.6 g/dl (12.0-15.5); MEAN CORPUSCULAR HEMOGLOBIN 28.9 pg (27.0-33.0); MEAN CORPUSCULAR HGB CONC 31.7 g/dl (32.0-36.5); MEAN CORPUSCULAR VOLUME 91.3 fl (80.0-96.0); PLATELET COUNT, AUTOMATED 230 10^3/uL (150-450); RED BLOOD COUNT 4.36 10^6/uL (4.00-5.40); WHITE BLOOD COUNT 6.2 10^3/uL (4.0-10.0)
[2019-09-26 05:43] LABS: BLOOD UREA NITROGEN 18 MG/DL (7-18); CALCIUM LEVEL 8.1 MG/DL (8.8-10.2); CARBON DIOXIDE LEVEL 26 MEQ/L (21-32); CHLORIDE LEVEL 109 MEQ/L (98-107); CREATININE FOR GFR 0.89 MG/DL (0.55-1.30); GLOMERULAR FILTRATION RATE > 60.0 (>45); GLUCOSE, FASTING 98 MG/DL (70-100); POTASSIUM SERUM 4.3 MEQ/L (3.5-5.1); SODIUM LEVEL 138 MEQ/L (136-145)
[2019-09-26 08:00] VITALS: BP 122/68
[2019-09-26 09:00] VITALS: BP 122/68
[2019-09-26] MEDS: METOPROLOL TART 25 MG TABLET PO SCH (09:00)
[2019-09-26] MEDS: ASPIRIN 81 MG ENTERIC TAB PO SCH (09:07)
[2019-09-26] MEDS: GABAPENTIN 300 MG CAP PO SCH (09:07)
[2019-09-26] MEDS: CETIRIZINE (ZyrTEC) 10 MG TAB PO SCH (09:07)
[2019-09-26] MEDS: OYSTER SHELL CALCIUM 500 MG TAB PO SCH (09:07)
[2019-09-26] MEDS: ESCITALOPRAM OXALATE 10 MG TAB (LEXAPRO) PO SCH (09:08)
--- NOTE | 2019-09-26 10:15 | DS.PDOC ---
Discharge Summary General Date of Admission Sep 24, 2019 at 17:00 Date of Discharge 09/26/19 Discharge Summary PROCEDURES PERFORMED DURING STAY: [None]. ADMITTING DIAGNOSES: 1. complex migraine DISCHARGE DIAGNOSES: 1. complex migraine COMPLICATIONS/CHIEF COMPLAINT: Tremor Of Left Hand. HISTORY OF PRESENT ILLNESS: Please refer to for detailed HPI. HOSPITAL COURSE: Patient was admitted to the hospital and treated for the following conditions: 1. L arm shaking/numbness to tongue/blurry vision - TIA versus complex migraine versus seizure. - MRI brain negative, carotids with no significant stenosis. - ECHO completed, results pending. - ASA. - seen by neurology Dr. Hess, outpatient EEG, continue ASA. - neurology follow up in 2-4 weeks. 2. hx migraines - continue triptan. - started on topamax. 3. lower back pain - continue muscle relaxant. 4. HTN (controlled) - advised to f/u with PCP for blood pressure checks. - patient does not want to continue metoprolol. DISCHARGE MEDICATIONS: Please see below. ALLERGIES: Please see below. PHYSICAL EXAMINATION ON DISCHARGE: VITAL SIGNS: Please see below. GENERAL: AAO x 3, NAD. HEENT: NCAT, anicteric sclera, PERRLA/EOMI NECK: supple, no JVD, no thyromegaly CARDIOVASCULAR EXAMINATION: NS1S2, regular, no murmurs/rubs RESPIRATORY EXAMINATION: CTA b/l, no wheezing, rales, rhonchi. ABDOMINAL EXAMINATION: NT/ND, positive bowel sounds, no masses EXTREMITIES: no cyanosis, clubbing, edema SKIN: warm, no rashes, NEUROLOGICAL EXAMINATION: AAO x 3, no motor/sensory deficits, PSYCHIATRIC EXAMINATION: calm, cooperative, normal affect. LABORATORY DATA: Please see below. IMAGING: CT head: Impression: There is no acute hemorrhage. There is no mass effect or shift. There is mild diffuse volume loss. MRI brain: IMPRESSION: No acute intracranial findings. carotid US: IMPRESSION: 1. Mild atherosclerotic changes in both proximal internal carotid arteries resulting in a less than 50 stenosis bilaterally consistent with mild stenosis using SRU criteria. 2. Antegrade flow both vertebral arteries. ECHO: results pending. PROGNOSIS: good ACTIVITY: [As tolerated]. DIET: low fat/low cholesterol DISPOSITION: home DISCHARGE INSTRUCTIONS: 1. Please follow up with neurology Dr. Hess in 2-4 weeks 2. Please follow up with PCP in 1-2 weeks. ITEMS TO FOLLOWUP ON ON OUTPATIENT: 1. none DISCHARGE CONDITION: [Stable]. TIME SPENT ON DISCHARGE: Greater than [30] minutes. Vital Signs/I&Os Vital Signs Date Time Temp Pulse Resp B/P (MAP) Pulse Ox O2 Delivery O2 Flow Rate FiO2 09/26/19 09:00 59 122/68 09/26/19 08:00 98.1 18 99 Room Air I&O- Last 24 Hours up to 6 AM 09/26/19 06:00 Intake Total 1450 ml Output Total 1450 ml Balance 0 ml Laboratory Data Labs 24H Laboratory Tests 2 09/26/19 05:05: Nucleated Red Blood Cells % (auto) 0.0, Anion Gap 3L, Glomerular Filtration Rate > 60.0, Calcium Level 8.1L CBC/BMP Laboratory Tests 09/26/19 05:05 Discharge Medications Scheduled Biotin (Biotin) 5 Mg Tablet, 5 MG PO DAILY, (Reported) Calcium Carbonate (Calcium) 500 Mg Tablet, 500 MG PO DAILY, (Reported) Celecoxib (Celecoxib) 200 Mg Cap, 200 MG PO BID, (Reported) Cetirizine HCl (Cetirizine HCl) 10 Mg Tablet, 10 MG PO DAILY, (Reported) Cholecalciferol (Vitamin D3) (Vitamin D3) 50 Mcg Capsule, 50 MCG PO DAILY, (Reported) Escitalopram Oxalate (Escitalopram Oxalate) 20 Mg Tablet, 20 MG PO DAILY, (Reported) Gabapentin (Gabapentin) 300 Mg Capsule, 300 MG PO QAM, (Reported) Gabapentin (Gabapentin) 300 Mg Capsule, 600 MG PO QHS, (Reported) [place]-3 Fatty Acids/Fish Oil (Fish Oil 1,000 mg Capsule) 1 Each Capsule, 1,000 MG PO DAILY, (Reported) Tizanidine HCl (Tizanidine HCl) 4 Mg Cap, 8 MG PO QHS, (Reported) Topiramate (Topamax) 50 Mg Tablet, 50 MG PO QHS Trazodone HCl (Trazodone HCl) 50 Mg Tab, 50 MG PO QHS, (Reported) Scheduled PRN Hydrocodone/Acetaminophen ([place] 5-325 Tablet) 1 Each Tablet, 1 TAB PO Q6H PRN for MIGRAINE, (Reported) Polyvinyl Alcohol (Artificial Tears) 15 Ml Drops, 1 DROP OU QID PRN for DRY EYES, (Reported) Rizatriptan Benzoate (Rizatriptan) 10 Mg Tab, 10 MG PO PRN PRN for MIGRAINE, (Reported) Allergies Coded Allergies: No Known Allergies (Verified , 02/23/17) GERMAIN HENRIQUEZ MD Sep 26, 2019 10:15
[2019-09-26] MEDS ORDERED: TOPA50TA8 PO (10:28)
--- NOTE | 2019-09-26 19:41 | ECHO ---
DATE OF PROCEDURE: 09/26/2019 REFERRING PHYSICIAN: Dr. Petersen INDICATION: Transient ischemic attack (TIA). Height is 165 cm, weight is 101 kg. DIMENSIONS: IVS: 1.1 LV: 4.8 LVPW: 1.0 LA: 4.0 Aorta: 2.7 RV: 3.1 IVC: 1.6 Left atrial volume index: 24 Mitral E wave velocity: 87 A wave: 77 E prime septal: 8.9 E prime lateral: 11.5 FINDINGS: The study is of acceptable technical quality. The patient is in sinus rhythm. Normal left ventricular (LV) size with normal LV systolic function, estimated left ventricular ejection fraction (LVEF) 60-65%. No segmental wall motion abnormalities are noted. Right ventricle also appears normal. Both atria appear normal. All four cardiac valves were reasonably well seen and appear normal. No pericardial effusion is noted. Inferior vena cava is normal size and appropriately collapses with inspiration indicative of normal central venous pressure. Aortic root and limited views of aortic arch appear normal. Abdominal aorta was not well seen. Doppler interrogation of aortic valve reveals no stenosis or insufficiency. There is mild mitral and tricuspid insufficiency. Calculated pulmonary artery pressure is within normal limits assuming normal central venous pressure (CVP), which seems likely. Pulmonic valve is functionally competent. Mitral inflow pattern and tissue Doppler imaging of mitral annulus revealed likely normal diastolic function. CONCLUSIONS: 1. Study is of acceptable technical quality, the patient is in sinus rhythm. 2. Normal LV size and systolic function, likely normal diastolic function. 3. No significant valvular disease. 5. Normal central venous pressure and likely normal pulmonary artery pressure. COMMENT: Subacute bacterial endocarditis (SBE) prophylaxis is not recommended. Relatively normal echocardiogram. No obvious explanation for TIA.
== END 2019-09-26 11:31 | disposition home or self-care (01) ==
LOC: M ED 14:52 → M ED INP 17:00 → ENRESERV 22:08 → M PCU 09-25 00:11
PROVIDERS: ADMIT Internal Medicine; ATTEND Internal Medicine
DX: G43.809 Other migraine, not intractable, without status migrainosus (principal); I65.23 Occlusion and stenosis of bilateral carotid arteries; G44.209 Tension-type headache, unspecified, not intractable; M54.5 Low back pain; I10 Essential (primary) hypertension; Z79.899 Other long term (current) drug therapy
CPT/HCPCS: 36415; 70450; 70551; 71045; 80047; 80048; 80053; 80061; 80076; 82550; 82553; 84484; 85025; 85027; 85610; 85730; 86850; 86900; 86901; 93005; 93041; 93306; 93880; 94760; 96374; 99285; G0378

== ENCOUNTER → 2020-01-25 | Outpatient (CLI) | payer MEDICARE, BC ==
[~2020-01-25] MED LIST changes: +ALL10TAB29 PO; +BIOT5TAB3 PO; +D3 S1CAP3 PO; +ESCI20TA PO; +GABA-843 PO; +NORC1TAB7 PO; +OYST1TAB PO; +POLYOPD OU; +TOPA50TA8 PO
--- NOTE | 2020-01-25 10:46 | REPMRS ---
Patient History The patient states she has not had a clinical breast exam in over a year. Family history of breast cancer at age 50 or over in mother, breast cancer at age 50 or over in maternal aunt. Benign stereotatic breast biopsy of the right breast, 2005. 3D TOMOSYNTHESIS WAS PERFORMED. [facility] for [facility] 11.[facility]%. VOLPARA DENSITY B. Digital Woman Screen Mammo: January 25, 2020 - Exam #: [id number] Bilateral CC and MLO view(s) were taken. Technologist: Christie Armstrong, Technologist Prior study comparison: January 11, 2019, bilateral digital woman screen mammo performed at [facility]. December 31, 2017, digital woman screen mammo performed at [facility]. FINDINGS: There are scattered fibroglandular densities. There has been no change in the appearance of the mammogram from the prior studies. There is a mild amount of residual fibroglandular tissue which is fairly symmetric. There is no interval development of dominant mass, architectural distortion, or clustered microcalcification suggestive of malignancy. Assessment: BI-RADS/ACR category 1 mammogram. Negative Mammogram. Recommendation Routine screening mammogram in 1 year (for women over age 40). This mammogram was interpreted with the aid of an FDA-approved computer-aided dectection system. Electronically Signed By: Kevyn Cunningham MD 01/25/20 0392
== END ==
LOC: M WHC 08:06
PROVIDERS: ATTEND Nurse Practitioner Family
DX: Z12.39 Encounter for other screening for malignant neoplasm of breast (principal)

== ENCOUNTER → 2020-06-11 | Outpatient (CLI) | payer MEDICARE, BC, OTHER ==
[~2020-06-11] MED LIST changes: -ALL10TAB29 PO; +CETI-24 PO
[2020-06-11 13:30] LABS: HEMATOCRIT 41.3 % (36.0-47.0); HEMOGLOBIN 12.9 g/dl (12.0-15.5); MEAN CORPUSCULAR HGB CONC 31.2 g/dl (32.0-36.5); MEAN CORPUSCULAR VOLUME 92.8 fl (80.0-96.0); PLATELET COUNT, AUTOMATED 205 10^3/uL (150-450); RED BLOOD COUNT 4.45 10^6/uL (4.00-5.40)
[2020-06-11 13:39] LABS: INR 1.02; PROTHROMBIN TIME 13.6 SECONDS (12.5-14.3)
[2020-06-11 13:41] LABS: ALBUMIN 3.6 GM/DL (3.2-5.2); ALT/SGPT 23 U/L (12-78); BILIRUBIN,TOTAL 0.4 MG/DL (0.2-1.0); BLOOD UREA NITROGEN 24 MG/DL (7-18); CALCIUM LEVEL 8.7 MG/DL (8.8-10.2); CARBON DIOXIDE LEVEL 25 MEQ/L (21-32); CHLORIDE LEVEL 113 MEQ/L (98-107); GLOMERULAR FILTRATION RATE > 60.0 (>45); GLUCOSE, FASTING 82 MG/DL (70-100); POTASSIUM SERUM 4.2 MEQ/L (3.5-5.1); SODIUM LEVEL 143 MEQ/L (136-145); TOTAL PROTEIN 6.4 GM/DL (6.4-8.2)
[2020-06-11 14:14] LABS: ERYTHROCYTE SEDIMENTATION RATE 8 mm/hr (0-30)
--- NOTE | 2020-06-11 15:01 | REP ---
INDICATION: LEFT TOTAL HIP ARTHROPLASTY. COMPARISON: Comparison chest x-ray September 24, 2019. TECHNIQUE: Two views.. FINDINGS: The lungs are well inflated and free of infiltrate. The pleural angles are sharp. The heart size is normal. Pulmonary vasculature is not increased. No significant bony abnormality is seen. There is some mild linear fibrosis in the left base unchanged from the prior study. Fusion plating is noted in the lower cervical spine. There are degenerative changes in the thoracic spine. IMPRESSION: No active disease. Mild linear fibrosis left base.. <Electronically signed by Myron Cano > 06/11/20 [id number]
== END ==
LOC: M LAB 10:45
PROVIDERS: ATTEND Orthopaedic Surgery
DX: M16.12 Unilateral primary osteoarthritis, left hip (principal)

== ENCOUNTER → 2020-06-21 | Outpatient (CLI) | payer MEDICARE, BC ==
[~2020-06-21] MED LIST changes: +ECOT81TA5 PO; +PURE500C5 PO; +ZYRTTAB8 PO
== END ==
LOC: M LABSMTC 10:29
PROVIDERS: ATTEND Anesthesiology
DX: Z01.812 Encounter for preprocedural laboratory examination (principal); Z20.828 Contact with and (suspected) exposure to other viral communicable diseases

== ENCOUNTER 2020-06-26 07:13 | Inpatient (IN) | payer MEDICARE, BC, OTHER ==
--- NOTE | 2020-06-25 07:01 | HPE ---
DATE OF ANTICIPATED ADMISSION: 06/26/2020 ATTENDING: Dr. Osvaldo Alonso CHIEF COMPLAINT: Left hip pain. HISTORY OF PRESENT ILLNESS: Jemima is a pleasant 65-year-old female with progressively worsening left hip pain and stiffness. She has failed to improve with conservative treatment. She has elected for surgery for her continued symptoms. She has pain with weightbearing activities and her activities of daily living. X-rays of her hip are notable for advanced osteoarthritis of the left hip joint. She has consented for a left total hip arthroplasty by Dr. Osvaldo Alonso. Medical optimization was performed by Dr. Cole. ALLERGIES: No known allergies. CURRENT MEDICATIONS: - tizanidine 4 mg two at bedtime - Celebrex 200 mg twice a day - topiramate 100 mg one at bedtime - Lexapro 20 mg a day - gabapentin 300 mg two at bedtime and one in the morning - Maxalt as needed - Vicodin 5/325 as needed for migraines - [id number] Zyrtec 10 mg - vitamin C - fish oil - biotin - calcium - probiotics - daily baby aspirin MEDICAL HISTORY: 1. Depression. 2. Migraines. PAST SURGICAL HISTORY: 1. Anterior cervical decompression and fusion. 2. Total right hip. 3. Abdominal hysterectomy. 4. Ganglion cyst, right middle finger. 5. Gastric bypass. SOCIAL HISTORY: Jemima is retired. Does not smoke. Rarely drinks alcohol. FAMILY HISTORY: Noncontributory. REVIEW OF SYSTEMS: Jemima denies chest pain, heart palpitations, cough, wheezing, difficulty breathing, and shortness of breath. She denies abdominal pain, nausea, vomiting, diarrhea, or constipation. She does complain of persistent pain in the left hip and pain with weightbearing activities in her left hip. PHYSICAL EXAMINATION: GENERAL: She is a well-nourished, well-developed in no acute distress alert female patient. She walks with a moderate limp favoring the left lower extremity. She is not using assistive devices. VITAL SIGNS: She is 5 feet 3-1/2 inches tall, weighs 210.8 pounds with a temperature 96.7, blood pressure 122/84, pulse 78, respirations 16. NECK: Supple without adenopathy or jugular venous distention. There were no carotid bruits appreciated upon auscultation. LUNGS: Clear to auscultation without rales or wheeze throughout. HEART: Regular rate and rhythm. ABDOMEN: Bowel sounds were present. EXTREMITIES: Examination of the hip revealed intact skin. She had decreased range of motion secondary to pain and stiffness. The limb is neurovascularly intact. LABORATORY DATA: EKG showed sinus rhythm at 63 beats per minute. X-rays not available yet. Protime 13.6, INR 1.02. Glucose 82, BUN 24, creatinine 0.90, sodium 143, potassium 4.2. CBC showed mean corpuscular hemoglobin concentration of 31.2, otherwise within normal limits. with a sedimentation rate of 8. IMPRESSION: Symptomatic osteoarthritis of the left hip. PLAN: Consented for a left total hip arthroplasty by Dr. Osvaldo Alonso pending chest x-ray. SHEELAD
[~2020-06-26] VITALS: Ht 162.6 cm; Wt 97.6 kg
[2020-06-26] VITALS (7 sets, daily range): BP systolic 105–138; BP diastolic 62–96
[~2020-06-26 07:13] MED LIST changes: +LIDOCAINE 1% MDV 20ML VIAL SQ PRN; +LR 1,000 ML IV ONE; +ceFAZolin SOD 2 GM in IV 1 EA IV ONE
[2020-06-26] MEDS ORDERED: TRANEXAMIC ACID 100 MG/ML 10ML VIAL As Ordered ONE (08:11)
[2020-06-26] MEDS ORDERED: BUPIVACAINE LIPOSOME/PF 1.3% 20ML VIAL (13.3MG/ML)(EXPAREL)(C9290 PER1MG) As Ordered ONE (08:12)
[2020-06-26] MEDS ORDERED: ceFAZolin 1GM VIAL (J0690 PER 500MG) As Ordered ONE (08:12)
[2020-06-26] MEDS ORDERED: EPINEPHrine INJ 1 MG/ML 1ML AMP As Ordered ONE (08:12)
[2020-06-26] MEDS ORDERED: MIDAZOLAM INJ 2MG/2ML VIAL (J2250 PER 1MG) As Ordered ONE (08:52)
[2020-06-26] MEDS ORDERED: fentaNYL 100 MCG/2 ML INJECTION (J3010) As Ordered ONE (08:52)
[2020-06-26] MEDS ORDERED: propofoL 200 MG/20 ML VIAL As Ordered ONE (08:52)
[2020-06-26] MEDS ORDERED: ONDANSETRON 4MG/2ML VIAL As Ordered ONE (08:52)
[2020-06-26] MEDS ORDERED: BUPIVACAINE HCL 0.25% 10ML VIAL As Ordered ONE (08:53)
[2020-06-26] MEDS ORDERED: ePHEDrine SULFATE 25 MG/5 ML(5MG/ML) SYRINGE As Ordered ONE (08:56)
[2020-06-26] MEDS ORDERED: fentaNYL 100 MCG/2 ML INJECTION (J3010) IV PRN (10:30)
[2020-06-26] MEDS ORDERED: PERCOCET 5MG/325MG TAB PO PRN (10:30)
[2020-06-26] MEDS ORDERED: LR 1,000 ML IV SCH (10:30)
[2020-06-26] MEDS: LR 1,000 ML IV SCH (10:45)
[2020-06-26] MEDS ORDERED: ONDANSETRON 4MG/2ML VIAL IV PRN (10:45)
[2020-06-26] MEDS ORDERED: MORPHINE 4 MG/ML 1ML VIAL/SYRINGE (J2270) IV PRN (10:45)
--- NOTE | 2020-06-26 10:47 | REP ---
INDICATION: PLACEMENT Status post arthroplasty. COMPARISON: None. TECHNIQUE: AP and cross-table lateral views. FINDINGS: The patient is status post left hip replacement with normal positioning and appearance to the femoral and acetabular components. Overlying postsurgical changes appreciated. IMPRESSION: Satisfactory left hip replacement radiographs. <Electronically signed by Berto Arteaga > 06/26/20 1041
[2020-06-26] MEDS: PERCOCET 5MG/325MG TAB PO PRN ×2 (11:27→16:43)
--- NOTE | 2020-06-26 13:57 | IPN ---
ORTHOPAEDIC PROGRESS NOTE DATE: 06/26/2020 SUBJECTIVE AND PLAN: Patient seen and examined. She wished to go ahead with a left total hip arthroplasty. She understands the nature of the procedure, the risks of bleeding, infection, damage to nerves and vessels, persistent pain, [place] loosening, dislocation, leg length inequality, blood clots, medical problems, among others. VIPUL
[2020-06-26] MEDS: MORPHINE 2 MG/ML 1ML VIAL (J2270) IV PRN ×2 (14:51→20:15)
[2020-06-26] MEDS: ceFAZolin SOD 2 GM in IV 1 EA IV SCH (16:43)
--- NOTE | 2020-06-26 17:35 | CR.PDOC ---
General Date of Consultation: Jun 26, 2020 Consultation REASON FOR CONSULTATION/CHIEF COMPLAINT: Medical management HISTORY OF PRESENT ILLNESS: Patient is 65 years old female with past medical history of depression, migraines, osteoarthritis presented hospital for elective left total hip arthroplasty. The procedure was done today by Dr. Alonso. Patient tolerates procedure well. Patient denies fever, chills, nausea, vomiting, diarrhea or dysuria ALLERGIES: Please see below. HOME MEDICATIONS: Please see below. PAST MEDICAL HISTORY: 1. Depression. 2. Migraines. PAST SURGICAL HISTORY: 1. Anterior cervical decompression and fusion. 2. Total right hip. 3. Abdominal hysterectomy. 4. Ganglion cyst, right middle finger. 5. Gastric bypass. FAMILY HISTORY: I personally reviewed family history and found not pertinent SOCIAL HISTORY: Tobacco use: Denied ETOH: Socially IV drug use: Denied REVIEW OF SYSTEMS: 10 point review of system negative except as listed above PHYSICAL EXAMINATION: VITAL SIGNS: Please see below. GENERAL APPEARANCE: NAD HEENT: no scleral icterus, no JVD, EOMI CARDIOVASCULAR: S1S2 LUNGS: CTA ABDOMEN: soft & not tender w palpitation MUSCULOSKELETAL: no cyanosis, no swelling INTEGUMENT: no generalized palor NEUROLOGICAL: cranial nerve function from 2-12 intact intact, follows commands, speech not dysarthric A/P Patient is 65 years old female with past medical history of depression, migraines, osteoarthritis presented hospital for elective left total hip arthroplasty. The procedure was done today by Dr. Alonso. Patient tolerates procedure well. Patient denies fever, chills, nausea, vomiting, diarrhea or dysuria S/P left hip replacement Pain management continue a/c Depression continue home meds Vital Signs/I&O Vital Signs Date Time Temp Pulse Resp B/P (MAP) Pulse Ox O2 Delivery O2 Flow Rate FiO2 06/26/20 17:13 18 06/26/20 16:00 97.9 89 127/73 (91) 95 Room Air Allergies Coded Allergies: No Known Allergies (Verified , 06/20/20) Home Medications Scheduled Ascorbic Acid (Vitamin C) 500 Mg Capsule.er, 500 MG PO DAILY, (Reported) Aspirin (Ecotrin) 81 Mg Tablet.dr, 81 MG PO DAILY, (Reported) Biotin (Biotin) 5 Mg Tablet, 5 MG PO DAILY, (Reported) Calcium Carbonate (Calcium) 500 Mg Tablet, 500 MG PO DAILY, (Reported) Celecoxib (Celecoxib) 200 Mg Cap, 200 MG PO BID, (Reported) Cetirizine HCl (Cetirizine HCl) 10 Mg Tablet, 10 MG PO DAILY, (Reported) Cholecalciferol (Vitamin D3) (Vitamin D3) 50 Mcg Capsule, 50 MCG PO DAILY, (Reported) Escitalopram Oxalate (Escitalopram Oxalate) 20 Mg Tablet, 20 MG PO DAILY, (Reported) Gabapentin (Gabapentin) 300 Mg Capsule, 300 MG PO QAM, (Reported) Gabapentin (Gabapentin) 300 Mg Capsule, 600 MG PO QHS, (Reported) [place]-3 Fatty Acids/Fish Oil (Fish Oil 1,000 mg Capsule) 1 Each Capsule, 1,000 MG PO DAILY, (Reported) Tizanidine HCl (Tizanidine HCl) 4 Mg Cap, 8 MG PO QHS, (Reported) Topiramate (Topamax) 50 Mg Tablet, 50 MG PO QHS for 30 Days, #30 Trazodone HCl (Trazodone HCl) 50 Mg Tab, 50 MG PO QHS, (Reported) Scheduled PRN Hydrocodone/Acetaminophen ([place] 5-325 Tablet) 1 Each Tablet, 1 TAB PO Q6H PRN for MIGRAINE, (Reported) Polyvinyl Alcohol (Artificial Tears) 15 Ml Drops, 1 DROP OU QID PRN for DRY EYES, (Reported) Rizatriptan Benzoate (Rizatriptan) 10 Mg Tab, 10 MG PO PRN PRN for MIGRAINE, (Reported) VEENA DUONG DO Jun 26, 2020 17:35
[2020-06-26] MEDS ORDERED: POLYVINYL ALCOHOL OPHTH SOLN 15 ML(LIQUITEARS) OU PRN (17:45)
[2020-06-26] MEDS ORDERED: RIZATRIPTAN BENZOATE 10 MG TAB PO PRN (17:45)
[2020-06-26] MEDS: CelecoXIB (CeleBREX) 100 MG CAP PO SCH (20:16)
[2020-06-26] MEDS ORDERED: tiZANidine 4 MG TAB PO SCH (21:00)
[2020-06-26] MEDS ORDERED: TOPIRAMATE (TopAMAX) 25 MG TAB PO SCH (21:00)
[2020-06-26] MEDS ORDERED: traZODone 50 MG TAB PO SCH (21:00)
[2020-06-26] MEDS ORDERED: GABAPENTIN 300 MG CAP PO SCH (21:00)
[2020-06-27] VITALS: BP 108/60
[2020-06-27] MEDS: ceFAZolin SOD 2 GM in IV 1 EA IV SCH (00:28)
[2020-06-27] MEDS: PERCOCET 5MG/325MG TAB PO PRN ×2 (00:28→05:14)
[2020-06-27] MEDS: LR 1,000 ML IV SCH (01:03)
[2020-06-27 04:00] VITALS: BP_SYST 102; BP_DIAS 58; BP_DIAS 59
[2020-06-27] MEDS ORDERED: PERCOCET 5MG/325MG TAB PO PRN (06:00)
[2020-06-27] MEDS ORDERED: ECOT81TA5 PO (06:27)
[2020-06-27] MEDS ORDERED: PERC5TAB12 PO (06:27)
[2020-06-27] MEDS ORDERED: XARE10TA PO (06:31)
[2020-06-27 06:39] LABS: HEMATOCRIT 34.8 % (36.0-47.0); HEMOGLOBIN 10.6 g/dl (12.0-15.5); MEAN CORPUSCULAR HEMOGLOBIN 28.5 pg (27.0-33.0); MEAN CORPUSCULAR HGB CONC 30.5 g/dl (32.0-36.5); MEAN CORPUSCULAR VOLUME 93.5 fl (80.0-96.0); PLATELET COUNT, AUTOMATED 179 10^3/uL (150-450); RED BLOOD COUNT 3.72 10^6/uL (4.00-5.40); WHITE BLOOD COUNT 8.7 10^3/uL (4.0-10.0)
--- NOTE | 2020-06-27 07:10 | RO ---
DATE OF OPERATION: 06/26/2020 PREOPERATIVE DIAGNOSIS: Left hip osteoarthritis. POSTOPERATIVE DIAGNOSIS: Left hip osteoarthritis. PROCEDURE: Left total hip arthroplasty using a [place] size 4 high offset, plus 5 32 ball, 52 acetabular component. SURGEON: Osvaldo Alonso MD FREIGHT HANDLER: Karen Alonso ANESTHESIA: Spinal. ESTIMATED BLOOD LOSS: 200 ml COMPLICATIONS: None. INDICATIONS: This is a 65-year-old with significant obesity, who has had gradually worsening left hip pain and wished to go ahead with a hip replacement. She did well with the previous right hip replacement many years ago. She understood the nature of this, the risks of bleeding, infection, damage to nerve vessels, persistent pain, [place] loosening, dislocation, among others. OPERATIVE PROCEDURE: The patient was taken to the operating room and placed in the supine position. After spinal anesthesia was induced, she was then turned to the right lateral decubitus position on the [place] positioner. All areas were padded appropriately. We prepped and draped the left hip in the usual sterile fashion. Time-out was performed and a longitudinal incision was made through the subcutaneous tissue which was quite deep, down to the fascia david. I then incised the fascia david and exposed the abductor; the anterior 40% or so of the abductor was divided off the hip as we gradually externally rotated the hip and exposed the proximal femur. I was then able to dislocate the hip without too much difficulty using the canal initiating reamer, the canal finding reamer, the lateralizing reamer and then sequentially reamed up to a size 4, which had good purchase, good bleeding bone and this was the size we had used on the contralateral hip. I then made the neck cut at about fingerbreadth or so from the lesser trochanter, removed the ball and then prepared the acetabulum. Soft tissue was removed from around the acetabulum. I then sequentially reamed up to a size 51, which had good bleeding bone, good concentric reaming. I removed any remaining soft tissue and irrigated copiously. I then impacted in a 52 cup and appropriate amount of anteversion and horizontal tilt and a solid cup was noted. The acetabular linear was then selected at 32 x 52 and this was impacted in place and made sure it was well seated. We then prepared the femoral side. I irrigated, I then broached up to a size 4, which had a good fit and fill. No fracture note. I then used the trial high offset plus 1.5 and plus 5 and elected to go with the plus 5. Excellent soft tissue tension was noted, excellent stability and extension, external rotation, flexion, internal rotation and there was minimal shuck. I then irrigated, impacted in the actual size 4 high offset stem and placed the head, impacted it in place, made sure it was well seated and then reduced the hip, put the hip through range of motion again, pleased with the soft tissue tension and stability and range of motion. I then irrigated, placed the TXA deep in the wound, placed the deep stitches in the minimus, repaired the abductor with #1 Vicryl suture with several stitches being placed through the bone. Then repaired the fascia david with #1 Vicryl suture and a running STRATAFIX and the subcutaneous tissue was closed with another STRATAFIX just to close the space, the subcutaneous tissue then closed with 2-0 Vicryl and the skin with stefania. Sterile dressing was applied. She was taken to the recovery room in stable condition. There were no known complications. The plan will be routine postop. VIPUL
[2020-06-27] MEDS: CelecoXIB (CeleBREX) 100 MG CAP PO SCH (08:30)
[2020-06-27] MEDS ORDERED: ESCITALOPRAM OXALATE 10 MG TAB (LEXAPRO) PO SCH (09:00)
[2020-06-27] MEDS ORDERED: MOM 30ML SUSPENSION UDC PO SCH (09:00)
[2020-06-27] MEDS ORDERED: GABAPENTIN 300 MG CAP PO SCH (09:00)
[2020-06-27] MEDS ORDERED: MIRALAX *UNIT DOSE* 17GM PACKET PO SCH (09:00)
[2020-06-27] MEDS ORDERED: OYSTER SHELL CALCIUM 500 MG TAB PO SCH (09:00)
[2020-06-27] MEDS ORDERED: CETIRIZINE (ZyrTEC) 10 MG TAB PO SCH (09:00)
[2020-06-27 09:58] VITALS: BP 98/73
[2020-06-27] MEDS ORDERED: RIVAROXABAN 10 MG TAB (XARELTO) PO SCH (18:00)
--- NOTE | 2020-07-02 10:47 | DSES ---
DISCHARGE SUMMARY DATE OF ADMISSION: 06/26/2020 DATE OF DISCHARGE: 06/27/2020 ATTENDING PHYSICIAN: Osvaldo Alonso MD. ADMITTING DIAGNOSIS: Osteoarthritis left hip. OTHER DIAGNOSES: Include: 1. Migraines. 2. Depression. DISCHARGE DIAGNOSIS: Osteoarthritis left hip status post left total hip arthroplasty. HISTORY: This is a 65-year-old female patient with progressively worsening left hip pain and stiffness. She failed to improve with conservative management. She was admitted for elective hip replacement on the left side. OPERATION PERFORMED: Left total hip arthroplasty. HOSPITAL COURSE: The patient was admitted on the day of surgery and underwent a left total hip arthroplasty which was uneventful. She did well in the post-operative period and her hospital course was without complications. She was up with physical therapy per their protocol and her pain was controlled. On the day of discharge she was weightbearing as tolerated on her left lower extremity. She will use oral pain medications for pain control. She will use Xarelto 10 mg per the protocol for DVT prophylaxis. She will also use Griffin stockings for 30 days post-operatively for DVT prophylaxis. She will resume her pre-operative medications and diet. She will follow up in our office in 10-14 days for a surgical follow up. She was given instructions that include, but not limited to wound monitoring and activity limitations. Please refer to the medical record for further details. Osvaldo Alonso MD
== END 2020-06-27 12:10 | disposition home health service (06) | DRG 470 ==
LOC: M OR 07:13 → M MS5PR 11:15
PROVIDERS: ADMIT Orthopaedic Surgery; ATTEND Orthopaedic Surgery
PROC: 0SRB02Z Replacement of Left Hip Joint with Metal on Polyethylene Synthetic Substitute, Open Approach (ICD-10-PCS; principal; 2020-06-26 08:30)
DX: M16.12 Unilateral primary osteoarthritis, left hip (principal); F32.9 Major depressive disorder, single episode, unspecified; G43.909 Migraine, unspecified, not intractable, without status migrainosus; R26.89 Other abnormalities of gait and mobility; Z98.84 Bariatric surgery status; Z96.641 Presence of right artificial hip joint; Z98.1 Arthrodesis status; Z79.82 Long term (current) use of aspirin; Z79.899 Other long term (current) drug therapy

== ENCOUNTER → 2021-01-28 | Outpatient (CLI) | payer MEDICARE, BC ==
[~2021-01-28] MED LIST changes: -ESCI20TA PO; +ESCI20TA16 PO; +GABA-282 PO; -GABA-843 PO; -LIDOCAINE 1% MDV 20ML VIAL SQ PRN; -LR 1,000 ML IV ONE; +PERC5TAB12 PO; +XARE10TA PO; -ceFAZolin SOD 2 GM in IV 1 EA IV ONE
--- NOTE | 2021-01-28 09:45 | REPMRS ---
Patient History The patient states she has not had a clinical breast exam in over a year. Family history of breast cancer at age 50 or over in mother, breast cancer at age 50 or over in maternal aunt. Benign stereotatic breast biopsy of the right breast, 2006. Patient states no breast complaints today. Patient has signed MRS History Sheet. Digital Woman Screen Mammo: January 28, 2021 - Exam #: [id number] Bilateral CC and MLO view(s) were taken. Technologist: Karen Bryant, Technologist Prior study comparison: January 25, 2020, bilateral digital woman screen mammo performed at [facility]. January 11, 2019, bilateral digital woman screen mammo performed at [facility]. December 31, 2017, digital woman screen mammo performed at [facility]. FINDINGS: The breast tissue is heterogeneously dense. This may lower the sensitivity of mammography. The Volpara volumetric breast density category is: C. There is a moderate amount of heterogeneously dense fibroglandular tissue which is fairly symmetric. There is no interval development of dominant mass, architectural distortion, or grouped microcalcification typical of malignancy. There has been no change in the appearance of the mammogram from the prior studies. 3-D tomosynthesis shows no additional findings. Assessment: BI-RADS/ACR category 1 mammogram. Negative Mammogram. Recommendation Routine screening mammogram of both breasts in 1 year (for women over age 40). This patient's [facility] Lifetime Breast Cancer RIsk is estimated at 10.9 %. This mammogram was interpreted with the aid of an FDA-approved computer-aided dectection system. Electronically Signed By: Myron Cano MD 01/28/21 0944
== END ==
LOC: M WHC 08:46
PROVIDERS: ATTEND Nurse Practitioner Family
DX: Z12.31 Encounter for screening mammogram for malignant neoplasm of breast (principal)

== ENCOUNTER → 2021-05-01 | Outpatient (CLI) | payer MEDICARE, BC, OTHER | LOC: M LABSMTC 10:02 | PROVIDERS: ATTEND Pediatrics | DX: Z20.822 Contact with and (suspected) exposure to COVID-19 (principal) | CPT/HCPCS: C9803; U0003 ==

== ENCOUNTER → 2021-11-28 | Outpatient (CLI) | payer MEDICARE, BC, OTHER ==
[2021-11-28 13:00] LABS: BASO # 0.1 10^3/uL (0.0-0.2); BASO % 0.9 % (0.0-1.0); EOS # 0.3 10^3/uL (0.0-0.5); EOS % 4.7 % (0.0-3.0); HEMATOCRIT 41.4 % (36.0-47.0); HEMOGLOBIN 12.9 g/dl (12.0-15.5); LYMPH # 1.7 10^3/uL (1.5-5.0); MEAN CORPUSCULAR HEMOGLOBIN 28.8 pg (27.0-33.0); MEAN CORPUSCULAR HGB CONC 31.2 g/dl (32.0-36.5); MEAN CORPUSCULAR VOLUME 92.4 fl (80.0-96.0); MONO # 0.3 10^3/uL (0.0-0.8); MONO % 6.4 % (2.0-8.0); NEUTROPHILS % 55.8 % (36.0-66.0); PLATELET COUNT, AUTOMATED 251 10^3/uL (150-450); RED BLOOD COUNT 4.48 10^6/uL (4.00-5.40); WHITE BLOOD COUNT 5.3 10^3/uL (4.0-10.0)
[2021-11-28 13:24] LABS: ALBUMIN 3.8 GM/DL (3.2-5.2); ALT/SGPT 17 U/L (12-78); BILIRUBIN,TOTAL 0.4 MG/DL (0.2-1.0); BLOOD UREA NITROGEN 23 MG/DL (7-18); CALCIUM LEVEL 9.3 MG/DL (8.8-10.2); CARBON DIOXIDE LEVEL 27 MEQ/L (21-32); CHLORIDE LEVEL 115 MEQ/L (98-107); CHOLESTEROL LEVEL 203 MG/DL (<200); CHOLESTEROL RISK RATIO 3.222 (<5); CREATININE FOR GFR 0.93 MG/DL (0.55-1.30); ERYTHROCYTE SEDIMENTATION RATE 5 mm/hr (0-30); GLOMERULAR FILTRATION RATE > 60.0 (>45); GLUCOSE, FASTING 84 MG/DL (70-100); HDL CHOLESTEROL 63 MG/DL (>40); LDL CHOLESTEROL 127 MG/DL (<100); NON-HDL-C 140 MG/DL; POTASSIUM SERUM 4.1 MEQ/L (3.5-5.1); RHEUMATOID FACTOR QUANT < 10.0 IU/ML (<15.0); SODIUM LEVEL 146 MEQ/L (136-145); TOTAL PROTEIN 6.4 GM/DL (6.4-8.2); TRIGLYCERIDES LEVEL 67 MG/DL (<150)
[2021-11-28 13:31] LABS: TOTAL 25(OH) VITAMIN D 35.5 NG/ML (30.0-100.0); VITAMIN B12 LEVEL 189 PG/ML (247-911)
[2021-11-28 13:36] LABS: FOLATE 19.6 NG/ML (>5.4)
[2021-11-29 13:08] LABS: ANTINUCLEAR ANTIBODIES DIRECT Negative (Negative)
== END ==
LOC: M LAB 11:36
PROVIDERS: ATTEND Psychiatry & Neurology Neurology
DX: R51.9 Headache, unspecified (principal); Z79.899 Other long term (current) drug therapy

== ENCOUNTER → 2022-01-13 | Outpatient (CLI) | payer MEDICARE, BC, OTHER | LOC: M WHC 12:54 | PROVIDERS: ATTEND Nurse Practitioner Family | DX: Z53.9 Procedure and treatment not carried out, unspecified reason (principal) ==

== ENCOUNTER 2022-01-27 11:48 | Emergency (ER) | payer MEDICARE, BC, OTHER ==
[~2022-01-27] VITALS: Ht 160 cm; Wt 84.4 kg
[2022-01-27 12:55] LABS: BASO # 0.1 10^3/uL (0.0-0.2); EOS # 0.2 10^3/uL (0.0-0.5); HEMATOCRIT 39.2 % (36.0-47.0); HEMOGLOBIN 12.2 g/dl (12.0-15.5); LYMPH # 1.5 10^3/uL (1.5-5.0); LYMPH % 29.1 % (24.0-44.0); MEAN CORPUSCULAR HEMOGLOBIN 29.5 pg (27.0-33.0); MEAN CORPUSCULAR HGB CONC 31.1 g/dl (32.0-36.5); MEAN CORPUSCULAR VOLUME 94.7 fl (80.0-96.0); MONO # 0.3 10^3/uL (0.0-0.8); MONO % 6.4 % (2.0-8.0); NEUTROPHILS # 3.1 10^3/uL (1.5-8.5); NEUTROPHILS % 59.3 % (36.0-66.0); PLATELET COUNT, AUTOMATED 210 10^3/uL (150-450); RED BLOOD COUNT 4.14 10^6/uL (4.00-5.40); WHITE BLOOD COUNT 5.2 10^3/uL (4.0-10.0)
[2022-01-27 13:09] LABS: INR 1.06; PROTHROMBIN TIME 14.2 SECONDS (12.7-14.5)
[2022-01-27 13:19] LABS: ALBUMIN 3.7 GM/DL (3.2-5.2); ALT/SGPT 22 U/L (12-78); BILIRUBIN,DIRECT 0.2 MG/DL (0.0-0.2); BILIRUBIN,TOTAL 0.5 MG/DL (0.2-1.0); BLOOD UREA NITROGEN 15 MG/DL (7-18); CALCIUM LEVEL 9.1 MG/DL (8.8-10.2); CARBON DIOXIDE LEVEL 24 MEQ/L (21-32); CHLORIDE LEVEL 113 MEQ/L (98-107); CREATININE FOR GFR 0.96 MG/DL (0.55-1.30); GLOMERULAR FILTRATION RATE > 60.0 (>45); GLUCOSE, FASTING 84 MG/DL (70-100); LIPASE 136 U/L (73-393); POTASSIUM SERUM 4.1 MEQ/L (3.5-5.1); SODIUM LEVEL 144 MEQ/L (136-145); TOTAL PROTEIN 6.4 GM/DL (6.4-8.2)
[2022-01-27 13:20] LABS: CK-MB VALUE MASS < 1.0 NG/ML (<3.6); CPK CREATINE PHOSPHOKINASE 51 U/L (26-192); MB/CK RELATIVE INDEX 1.96 (< OR =4)
[2022-01-27 13:58] LABS: MAGNESIUM LEVEL 2.3 MG/DL (1.8-2.4)
[2022-01-27] MEDS ORDERED: Holter Monitor (15:04)
[2022-01-27 15:33] VITALS: BP 164/84
== END 2022-01-27 16:01 | disposition home or self-care (01) ==
LOC: M ED 11:48
DX: R00.2 Palpitations (principal); J45.909 Unspecified asthma, uncomplicated; I10 Essential (primary) hypertension; M54.50 Low back pain, unspecified; Z98.84 Bariatric surgery status; Z79.899 Other long term (current) drug therapy

== ENCOUNTER → 2022-02-01 | Outpatient (CLI) | payer MEDICARE, BC, OTHER ==
[~2022-02-01] MED LIST changes: +Holter Monitor
== END ==
LOC: M EKG 09:03
PROVIDERS: ATTEND Emergency Medicine
DX: R00.2 Palpitations (principal); R06.00 Dyspnea, unspecified

== ENCOUNTER → 2022-02-05 | Outpatient (CLI) | payer MEDICARE, BC, OTHER | LOC: M WHC 07:20 | PROVIDERS: ATTEND Student in an Organized Health Care Education/Training Program | DX: Z12.31 Encounter for screening mammogram for malignant neoplasm of breast (principal); Z13.820 Encounter for screening for osteoporosis; M85.832 Other specified disorders of bone density and structure, left forearm ==

== ENCOUNTER → 2022-03-03 | Outpatient (CLI) | payer MEDICARE, BC, OTHER ==
[2022-03-03 14:02] LABS: BASO % 0.8 % (0.0-1.0); EOS # 0.2 10^3/uL (0.0-0.5); EOS % 4.5 % (0.0-3.0); HEMOGLOBIN 12.1 g/dl (12.0-15.5); LYMPH # 1.6 10^3/uL (1.5-5.0); LYMPH % 34.2 % (24.0-44.0); MEAN CORPUSCULAR HEMOGLOBIN 30.1 pg (27.0-33.0); MEAN CORPUSCULAR HGB CONC 31.8 g/dl (32.0-36.5); MEAN CORPUSCULAR VOLUME 94.5 fl (80.0-96.0); MONO # 0.3 10^3/uL (0.0-0.8); MONO % 5.5 % (2.0-8.0); NEUTROPHILS # 2.6 10^3/uL (1.5-8.5); NEUTROPHILS % 54.6 % (36.0-66.0); PLATELET COUNT, AUTOMATED 208 10^3/uL (150-450); RED BLOOD COUNT 4.02 10^6/uL (4.00-5.40); WHITE BLOOD COUNT 4.7 10^3/uL (4.0-10.0)
== END ==
LOC: M LAB 13:00
PROVIDERS: ATTEND Family Medicine
DX: R00.2 Palpitations (principal); I49.8 Other specified cardiac arrhythmias

== ENCOUNTER → 2022-04-29 | Outpatient (CLI) | payer MEDICARE, BC, OTHER | LOC: M LAB 14:24 | PROVIDERS: ATTEND Nurse Practitioner Family | DX: E53.8 Deficiency of other specified B group vitamins (principal) ==

== ENCOUNTER → 2022-05-12 | Outpatient (CLI) | payer MEDICARE, BC, OTHER ==
[2022-05-12 14:41] LABS: BASO % 0.7 % (0.0-1.0); EOS # 0.2 10^3/uL (0.0-0.5); EOS % 4.7 % (0.0-3.0); HEMATOCRIT 40.9 % (36.0-47.0); HEMOGLOBIN 12.6 g/dl (12.0-15.5); LYMPH # 1.4 10^3/uL (1.5-5.0); LYMPH % 33.2 % (24.0-44.0); MEAN CORPUSCULAR HEMOGLOBIN 29.4 pg (27.0-33.0); MEAN CORPUSCULAR HGB CONC 30.8 g/dl (32.0-36.5); MEAN CORPUSCULAR VOLUME 95.6 fl (80.0-96.0); MONO # 0.3 10^3/uL (0.0-0.8); MONO % 6.1 % (2.0-8.0); NEUTROPHILS # 2.3 10^3/uL (1.5-8.5); NEUTROPHILS % 55.1 % (36.0-66.0); PLATELET COUNT, AUTOMATED 213 10^3/uL (150-450); RED BLOOD COUNT 4.28 10^6/uL (4.00-5.40); WHITE BLOOD COUNT 4.3 10^3/uL (4.0-10.0)
[2022-05-12 15:18] LABS: ALBUMIN 3.7 GM/DL (3.2-5.2); BILIRUBIN,TOTAL 0.5 MG/DL (0.2-1.0); CALCIUM LEVEL 8.8 MG/DL (8.8-10.2); CHOLESTEROL RISK RATIO 3.104 (<5); CREATININE FOR GFR 1.03 MG/DL (0.55-1.30); FREE T4 0.88 NG/DL (0.76-1.46); GLOMERULAR FILTRATION RATE 56.6 (>45); MAGNESIUM LEVEL 2.1 MG/DL (1.8-2.4); PERCENT SATURATION 30.1 % (13.2-45.0); POTASSIUM SERUM 4.3 MEQ/L (3.5-5.1); THYROID STIMULATING HORMONE 0.993 uIU/ML (0.358-3.740); TOTAL PROTEIN 6.5 GM/DL (6.4-8.2)
[2022-05-12 16:09] LABS: TOTAL 25(OH) VITAMIN D 31.5 NG/ML (30.0-100.0)
== END ==
LOC: M LAB 13:24
PROVIDERS: ATTEND Nurse Practitioner Adult Health
DX: R00.2 Palpitations (principal)

== ENCOUNTER → 2022-07-17 | Outpatient (CLI) | payer MEDICARE, BC, OTHER ==
[~2022-07-17] MED LIST changes: +ASCO500C3 PO; +CELE1CAP9; -PURE500C5 PO; +VICT18IN2
== END ==
LOC: M SLEEP HO 14:09
PROVIDERS: ATTEND Internal Medicine Cardiovascular Disease
DX: I27.20 Pulmonary hypertension, unspecified (principal)

== ENCOUNTER 2022-07-24 13:53 | Emergency (ER) | payer MEDICARE, BC, OTHER ==
[~2022-07-24] VITALS: Ht 160 cm; Wt 83.1 kg
[~2022-07-24 13:53] MED LIST changes: -CELE1CAP9; -VICT18IN2
[2022-07-24] MEDS ORDERED: CELE1CAP9 (14:06)
[2022-07-24] MEDS ORDERED: VICT18IN2 (14:06)
[2022-07-24 16:09] LABS: BASO % 0.3 % (0.0-1.0); EOS # 0.2 10^3/uL (0.0-0.5); EOS % 5.1 % (0.0-3.0); HEMATOCRIT 41.7 % (36.0-47.0); HEMOGLOBIN 12.7 g/dl (12.0-15.5); LYMPH # 1.5 10^3/uL (1.5-5.0); LYMPH % 39.6 % (24.0-44.0); MEAN CORPUSCULAR HEMOGLOBIN 28.7 pg (27.0-33.0); MEAN CORPUSCULAR HGB CONC 30.5 g/dl (32.0-36.5); MEAN CORPUSCULAR VOLUME 94.3 fl (80.0-96.0); MONO # 0.4 10^3/uL (0.0-0.8); MONO % 9.5 % (2.0-8.0); NEUTROPHILS # 1.8 10^3/uL (1.5-8.5); NEUTROPHILS % 45.5 % (36.0-66.0); PLATELET COUNT, AUTOMATED 198 10^3/uL (150-450); RED BLOOD COUNT 4.42 10^6/uL (4.00-5.40); WHITE BLOOD COUNT 3.9 10^3/uL (4.0-10.0)
[2022-07-24 16:29] LABS: BLOOD UREA NITROGEN 18 MG/DL (9-23); CALCIUM LEVEL 8.4 MG/DL (8.3-10.6); CARBON DIOXIDE LEVEL 26 MMOL/L (20-31); CHLORIDE LEVEL 109 MMOL/L (98-107); CREATININE FOR GFR 0.86 MG/DL (0.55-1.30); GLOMERULAR FILTRATION RATE > 60.0 (>45); GLUCOSE, FASTING 82 MG/DL (74-106); POTASSIUM SERUM 4.4 MMOL/L (3.5-5.1); SODIUM LEVEL 142 MMOL/L (136-145)
[2022-07-24 16:53] VITALS: BP 135/79
== END 2022-07-24 16:56 | disposition home or self-care (01) ==
LOC: M ED 13:53
DX: U07.1 COVID-19 (principal); I49.3 Ventricular premature depolarization; I10 Essential (primary) hypertension; M81.0 Age-related osteoporosis without current pathological fracture; Z79.82 Long term (current) use of aspirin; Z79.811 Long term (current) use of aromatase inhibitors; Z79.899 Other long term (current) drug therapy

== ENCOUNTER → 2023-03-09 | Outpatient (CLI) | payer MEDICARE, BC, OTHER ==
[~2023-03-09] MED LIST changes: +ARTIDRO4 OU; +CELE1CAP9; -POLYOPD OU; +VICT18IN2
== END ==
LOC: M WHC 07:28
PROVIDERS: ATTEND Nurse Practitioner Adult Health
DX: Z12.31 Encounter for screening mammogram for malignant neoplasm of breast (principal); D51.9 Vitamin B12 deficiency anemia, unspecified; E66.9 Obesity, unspecified; Z98.84 Bariatric surgery status; Z79.899 Other long term (current) drug therapy

== ENCOUNTER → 2023-03-09 | Outpatient (CLI) | payer MEDICARE, BC, OTHER ==
[2023-03-09 11:00] LABS: BASO % 0.7 % (0.0-1.0); EOS # 0.3 10^3/uL (0.0-0.5); EOS % 5.1 % (0.0-3.0); HEMATOCRIT 37.6 % (36.0-47.0); HEMOGLOBIN 11.5 g/dl (12.0-15.5); LYMPH # 1.6 10^3/uL (1.5-5.0); LYMPH % 29.5 % (24.0-44.0); MEAN CORPUSCULAR HGB CONC 30.6 g/dl (32.0-36.5); MEAN CORPUSCULAR VOLUME 94.9 fl (80.0-96.0); MONO # 0.5 10^3/uL (0.0-0.8); MONO % 8.2 % (2.0-8.0); NEUTROPHILS # 3.1 10^3/uL (1.5-8.5); NEUTROPHILS % 56.3 % (36.0-66.0); PLATELET COUNT, AUTOMATED 218 10^3/uL (150-450); RED BLOOD COUNT 3.96 10^6/uL (4.00-5.40); WHITE BLOOD COUNT 5.5 10^3/uL (4.0-10.0)
[2023-03-09 11:23] LABS: FREE T4 0.89 NG/DL (0.89-1.76); THYROID STIMULATING HORMONE 5.137 uIU/ML (0.55-4.78); TOTAL IRON BINDING CAPACITY 323 UG/DL (250-425)
[2023-03-09 11:24] LABS: ALBUMIN 3.6 G/DL (3.2-5.2); ALKALINE PHOSPHATASE 86 U/L (46-116); ALT/SGPT 16 U/L (7.0-40); AST/SGOT 10 U/L (<34); BILIRUBIN,TOTAL 0.4 MG/DL (0.3-1.2); BLOOD UREA NITROGEN 19 MG/DL (9-23); CALCIUM LEVEL 8.8 MG/DL (8.3-10.6); CARBON DIOXIDE LEVEL 26 MMOL/L (20-31); CHLORIDE LEVEL 111 MMOL/L (98-107); CHOLESTEROL LEVEL 167 MG/DL (<200); CHOLESTEROL RISK RATIO 2.84 (<5); CREATININE FOR GFR 0.91 MG/DL (0.55-1.30); FOLATE > 24.0 NG/ML (>5.4); GLOMERULAR FILTRATION RATE > 60.0 (>45); GLUCOSE, FASTING 111 MG/DL (74-106); HDL CHOLESTEROL 58.6 MG/DL (>40); IRON (FE) 88 UG/DL (50-170); LDL CHOLESTEROL 98.4 MG/DL (<100); NON-HDL-C 108.4 MG/DL; PERCENT SATURATION 27.2 % (13.2-45.0); POTASSIUM SERUM 4.6 MMOL/L (3.5-5.1); SODIUM LEVEL 145 MMOL/L (136-145); TRIGLYCERIDES LEVEL 50 MG/DL (<150)
[2023-03-09 11:25] LABS: VITAMIN B12 LEVEL 1236 PG/ML (211-911)
== END ==
LOC: M PLALAB 08:08
PROVIDERS: ATTEND Nurse Practitioner Adult Health
DX: D51.9 Vitamin B12 deficiency anemia, unspecified (principal); E66.9 Obesity, unspecified; Z98.84 Bariatric surgery status; Z79.899 Other long term (current) drug therapy

== ENCOUNTER → 2023-03-24 | Outpatient (CLI) | payer MEDICARE, BC, OTHER ==
[2023-03-24 10:14] LABS: ALBUMIN 3.2 G/DL (3.2-5.2); ALKALINE PHOSPHATASE 84 U/L (46-116); ALT/SGPT 15 U/L (7.0-40); AST/SGOT < 8 U/L (<34); BILIRUBIN,DIRECT 0.1 MG/DL (<0.4); BILIRUBIN,TOTAL 0.3 MG/DL (0.3-1.2); TOTAL PROTEIN 5.9 G/DL (5.7-8.2)
== END ==
LOC: M PLALAB 07:32
PROVIDERS: ATTEND Nurse Practitioner Adult Health
DX: B35.1 Tinea unguium (principal)

== ENCOUNTER → 2023-09-15 | Outpatient (CLI) | payer MEDICARE, BC, OTHER ==
[~2023-09-15] MED LIST changes: -BIOT50004 PO; +BIOT5CAP8 PO; +CELE0.09; +CELE0.09 PO; -CELE1CAP9; -CELE1CAP9 PO
== END ==
LOC: M PLAIMG 14:05
PROVIDERS: ATTEND Nurse Practitioner Adult Health
DX: M50.10 Cervical disc disorder with radiculopathy, unspecified cervical region (principal); M47.22 Other spondylosis with radiculopathy, cervical region

== ENCOUNTER 2024-01-04 06:51 | Day surgery (SDC) | payer MEDICARE, BC ==
[~2024-01-04] VITALS: Ht 160 cm; Wt 86.6 kg
[~2024-01-04 06:51] MED LIST changes: +OMEP40CA5 PO; +SUCR1TAB56 PO
[2024-01-04] MEDS ORDERED: propofoL 200 MG/20 ML VIAL As Ordered ONE (07:03)
[2024-01-04] MEDS ORDERED: LIDOCAINE 2% 100MG/5ML SDV (FOR ANES.) As Ordered ONE (07:04)
[2024-01-04] MEDS: NS 1,000 ML IV ONE (07:14)
[2024-01-04 08:08] VITALS: BP 127/75; TEMP 97.7; O2SAT 99
== END 2024-01-04 08:16 | disposition home or self-care (01) ==
LOC: M OPP 06:51
PROVIDERS: ATTEND Internal Medicine Gastroenterology
DX: R10.13 Epigastric pain (principal); Z98.84 Bariatric surgery status; Z79.82 Long term (current) use of aspirin; Z79.899 Other long term (current) drug therapy

== ENCOUNTER → 2024-08-01 | Outpatient (REF) | payer MEDICARE, BC ==
[~2024-08-01] MED LIST changes: +GABA-1172 PO; -GABA-282 PO
== END ==
LOC: M LAB REF 17:21
PROVIDERS: ATTEND Nurse Practitioner Adult Health
DX: N39.0 Urinary tract infection, site not specified (principal)

== ENCOUNTER → 2024-08-23 | Outpatient (CLI) | payer MEDICARE, BC | LOC: M PLAIMG 10:27 | PROVIDERS: ATTEND Nurse Practitioner Adult Health | DX: M25.552 Pain in left hip (principal) ==

== ENCOUNTER → 2025-04-10 | Outpatient (CLI) | payer MEDICARE, BC ==
[~2025-04-10] MED LIST changes: -AMBI10TA PO; +ZOLP-533 PO
== END ==
LOC: M WHC 09:54
PROVIDERS: ATTEND Nurse Practitioner Adult Health
DX: Z12.31 Encounter for screening mammogram for malignant neoplasm of breast (principal)